=== PATIENT | female | born 1960 | race Hispanic/Latino ===

== ENCOUNTER 2016-11-29 10:44 | Emergency (ER) | payer BC ==
[2016-11-29 10:54] VITALS: BMI 30.1
[2016-11-29 11:00] VITALS: TEMP 99.1
[2016-11-29] MEDS ORDERED: TDAP Vaccine 0.5 mL Syr IM ONE (11:19)
[2016-11-29] MEDS ORDERED: Amoxicillin-Clav 875-125 mg Tab PO STA (11:20)
--- NOTE | 2016-11-29 11:20 | ED PDOC ---
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 Patient stated while walking her dog at a local park, a "pit Bull" dog attacked her dog. She tried to break the attack, but she was bit by the pit bull. Patient stated she was able to get rabies vaccine for the attacker dog. Last tetanus is [facility]. Denies allergies or past medical history. Patient has FROM on her hand and fingers with mild pain. Time/Duration: Prior to Arrival Context: Other (park) Past Medical History - Provider Review Nursing Documentation Reviewed: Yes - Infectious Disease Hx of Infectious Diseases: None - Tetanus Immunization Tetanus Immunization: Unknown - Cardiac Hx Cardiac Disorders: No - Pulmonary Hx Respiratory Disorders: No - Neurological Hx Neurological Disorder: No - HEENT Hx HEENT Disorder: No - Renal Hx Renal Disorder: No - Endocrine/Metabolic Hx Endocrine Disorders: No - Hematological/Oncological Hx Blood Disorders: No - Integumentary Hx Dermatological Disorder: No - Musculoskeletal/Rheumatological Hx Musculoskeletal Disorders: No Hx Falls: No - Gastrointestinal Hx Gastrointestinal Disorders: No - Genitourinary/Gynecological Hx Genitourinary Disorders: No Hx Reproductive Disorders: No - Psychiatric Hx Psychophysiologic Disorder: No Hx Anxiety: No Hx Bipolar Disorder: No Hx Depression: Yes Hx Emotional Abuse: No Hx Hallucinations: No Hx Panic Disorder: No Hx Post Traumatic Stress Disorder: No Hx Psychosis: No Hx Physical Abuse: No Hx Schizophrenia: No Hx Sexual Abuse: No Hx Substance Use: No - Surgical History Hx Section: Yes (x1) Hx Cholecystectomy: Yes Other/Comment: vein stripping - Anesthesia Hx Anesthesia: Yes Hx Anesthesia Reactions: No Hx Malignant Hyperthermia: No - Suicidal Assessment Feels Threatened In Home Enviroment: No Family/Social History - Physician Review Nursing Documentation Reviewed: Yes Family/Social History: No Known Family HX Smoking Status: Never Smoked Hx Alcohol Use: No Hx Substance Use: No Hx Substance Use Treatment: No Allergies/Home Meds Allergies/Adverse Reactions: Allergies No Known Allergies Allergy (Verified 11/29/16 10:54) Home Medications: Home Meds Medication Instructions Recorded Confirmed DULoxetine [Cymbalta] 20 mg PO DAILY 03/11/12 11/29/16 Aspirin [[place] Aspirin] 1 tab PO DAILY 11/29/16 11/29/16 Review of Systems - Review of Systems Constitutional: Normal. absent: Fatigue, Weight Change, Fevers, Night Sweats Eyes: Normal ENT: Normal Respiratory: Normal. absent: SOB, Cough Cardiovascular: Normal. absent: Chest Pain, Palpitations Gastrointestinal: Normal. absent: Abdominal Pain, Nausea, Vomiting Genitourinary Female: Normal. absent: Dysuria Musculoskeletal: Normal Skin: Other (dog bite wounds on right dorsal hand) Neurological: Normal Endocrine: Normal Hemo/Lymphatic: Normal Psychiatric: Normal Physical Exam Vital Signs Temp Pulse Resp BP Pulse Ox 11/29/16 10:58 99.1 F 108 H 20 175/116 H 99 Temperature: Afebrile Blood Pressure: Hypertensive Pulse: Tachycardic Respiratory Rate: Normal Appearance: Positive for: Well-Appearing, Non-Toxic, Comfortable Pain Distress: None Mental Status: Positive for: Alert and Oriented X 3 - Systems Exam Head: Present: Atraumatic, Normocephalic Pupils: Present: PERRL Extroacular Muscles: Present: EOMI Conjunctiva: Present: Normal Mouth: Present: Moist Mucous Membranes Neck: Present: Normal Range of Motion Upper Extremity: Present: Normal ROM, NORMAL PULSES, Tenderness, Neurovascularly Intact, Capillary Refill < 2s, Other ((+) there are 4 punctures wound over distal aspect of right hand, and 1 cm laceration between 3rd, and 4th MPJ area, superficial. Hand has FROM). No: Cyanosis, Edema Lower Extremity: Present: Normal Inspection, Normal ROM Neurological: Present: GCS=15, CN II-XII Intact, Speech Normal, Motor Func Grossly Intact, Normal Sensory Function, Normal Cerebellar Funct, Gait Normal, Memory Normal Skin: Present: Warm, Dry, Normal Color. No: Rashes Psychiatric: Present: Alert, Oriented x 3, Normal Insight, Normal Concentration Medical Decision Making ED Course and Treatment: 11/29/16 11:23 Adacel, and Augmentin were ordered. Wound care was verbally ordered to nurse. 11/29/16 11:38 Patient is resting comfortably, and is in no acute distress. Patient was instructed to follow up with PMD in 1-2 days for further evaluation. Re-evaluation Time: 11:38 Reassessment Condition: Re-examined, Improved - Medication Orders Current Medication Orders: Discontinued Medications Amoxicillin/Clavulanate Potassium (Augmentin 875 Mg-125 Mg Tab) 1 tab PO STAT STA PRN Reason: Protocol Stop: 11/29/16 11:21 Tetanus/Reduced Diphtheria/Acell Pertussis (Boostrix Vaccine Inj) 0.5 ml IM .ONCE ONE Stop: 11/29/16 11:20 Disposition/Present on Arrival - Present on Arrival Any Indicators Present on Arrival: No History of DVT/PE: No History of Uncontrolled Diabetes: No Urinary Catheter: No History of Decub. Ulcer: No History Surgical Site Infection Following: None - Disposition Have Diagnosis and Disposition been Completed?: Yes Diagnosis: Dog bite Disposition: HOME/ ROUTINE Disposition Time: 11:38 Patient Plan: Discharge Condition: GOOD Discharge Instructions (ExitCare): Animal Bite (ED) Additional Instructions: Call private doctor for follow up visit in 1-2 days for wound check. Take medication as instructed. Clean wound daily with soap and water. Return to emergency if wound becomes infected, redness, swelling, discharge or worsen symptoms. Prescriptions: Amoxicillin/Clavulanate [Augmentin 875 MG-125 MG] 1 tab PO BID #20 tab Forms: [employer] ([place])
[2016-11-29 12:25] VITALS: BP 147/94; PULSE 98; RESP 18; O2SAT 98
== END 2016-11-29 12:31 | disposition home or self-care (01) ==
LOC: ED 10:44
DX: S61.451A Open bite of right hand, initial encounter (principal); W54.0XXA Bitten by dog, initial encounter; Z23 Encounter for immunization; Y92.830 Public park as the place of occurrence of the external cause

== ENCOUNTER 2017-04-06 14:46 | Inpatient (IN) | payer BC ==
[2017-04-06 14:47] VITALS: BMI 30.1
--- NOTE | 2017-04-06 15:19 | ED PDOC ---
Arrival/HPI - General Historian: Patient <Nir Aleman A - Last Filed: 04/06/17 19:44> <RosalindTerri - Last Filed: 04/08/17 18:51> - General Chief Complaint: Psychiatric Evaluation Time Seen by Provider: 04/06/17 14:52 - History of Present Illness Narrative History of Present Illness (Text): 04/06/17 16:08 56yo female with PMHx of hyperlipdemia and pysch history of depression biba for suicidal attempt. Patient sates she took 25 to 30tabs of Xanax at 1230 this afternoon. States she took it intentionally because of what she is currently going through at home. 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 Patient however denies homicidal ideation, hallucination, any somatic complaint. Notes that she sees a Psychiatrist and the last time was 6months ago. (Nir Aleman A) Past Medical History - Provider Review Nursing Documentation Reviewed: Yes - Infectious Disease Hx of Infectious Diseases: None - Tetanus Immunization Tetanus Immunization: Unknown - Cardiac Hx Cardiac Disorders: No - Pulmonary Hx Respiratory Disorders: No - Neurological Hx Neurological Disorder: No - HEENT Hx HEENT Disorder: No - Renal Hx Renal Disorder: No - Endocrine/Metabolic Hx Endocrine Disorders: No - Hematological/Oncological Hx Blood Disorders: No - Integumentary Hx Dermatological Disorder: No - Musculoskeletal/Rheumatological Hx Musculoskeletal Disorders: No - Gastrointestinal Hx Gastrointestinal Disorders: No - Genitourinary/Gynecological Hx Genitourinary Disorders: No - Psychiatric Hx Bipolar Disorder: Yes Hx Depression: Yes Hx Substance Use: No - Surgical History Hx Section: Yes (x1) Hx Cholecystectomy: Yes Other/Comment: vein stripping - Anesthesia Hx Anesthesia: Yes Hx Anesthesia Reactions: No Hx Malignant Hyperthermia: No - Suicidal Assessment Feels Threatened In Home Enviroment: No <Nir Aleman A - Last Filed: 04/06/17 19:44> Family/Social History - Physician Review Nursing Documentation Reviewed: Yes Family/Social History: Unknown Family HX Smoking Status: Never Smoked Hx Alcohol Use: No Hx Substance Use: No Hx Substance Use Treatment: No <Nir Aleman A - Last Filed: 04/06/17 19:44> Allergies/Home Meds <Nir Aleman A - Last Filed: 04/06/17 19:44> <Terri Boyer - Last Filed: 04/08/17 18:51> Allergies/Adverse Reactions: Allergies No Known Allergies Allergy (Verified 04/06/17 21:46) Home Medications: Home Meds Medication Instructions Recorded Confirmed DULoxetine [Cymbalta] 30 mg PO DAILY 03/11/12 04/06/17 Review of Systems - Physician Review All systems were reviewed & negative as marked: Yes - Review of Systems Constitutional: Normal Eyes: Normal ENT: Normal Respiratory: Normal Cardiovascular: Normal Gastrointestinal: Normal Genitourinary Female: Normal Musculoskeletal: Normal Skin: Normal Neurological: Normal Endocrine: Normal Hemo/Lymphatic: Normal Psychiatric: Depression, Suicidal Ideation (Suicidal attempt) <Nir Aleman A - Last Filed: 04/06/17 19:44> Physical Exam Vital Signs Reviewed: Yes Temperature: Afebrile Blood Pressure: Normal Pulse: Regular Respiratory Rate: Normal Appearance: Positive for: Well-Appearing, Non-Toxic, Comfortable Pain Distress: None Mental Status: Positive for: Alert and Oriented X 3 - Systems Exam Head: Present: Atraumatic, Normocephalic Pupils: Present: PERRL Extroacular Muscles: Present: EOMI Conjunctiva: Present: Normal Mouth: Present: Moist Mucous Membranes Neck: Present: Normal Range of Motion Respiratory/Chest: Present: Clear to Auscultation, Good Air Exchange. No: Respiratory Distress, Accessory Muscle Use Cardiovascular: Present: Regular Rate and Rhythm, Normal S1, S2. No: Murmurs Abdomen: Present: Normal Bowel Sounds. No: Tenderness, Distention, Peritoneal Signs Back: Present: Normal Inspection Upper Extremity: Present: Normal Inspection. No: Cyanosis, Edema Lower Extremity: Present: Normal Inspection. No: Edema Neurological: Present: GCS=15, CN II-XII Intact, Speech Normal Skin: Present: Warm, Dry, Normal Color. No: Rashes Psychiatric: Present: Alert, Oriented x 3, Normal Insight, Normal Concentration , Depressed Mood <Nir Aleman A - Last Filed: 04/06/17 19:44> Vital Signs Temp Pulse Resp BP Pulse Ox 04/06/17 19:19 86 16 103/54 L 97 04/06/17 17:18 80 16 127/78 96 04/06/17 14:56 98.3 F 92 H 18 137/75 96 Medical Decision Making <Nir Aleman - Last Filed: 04/06/17 19:44> <Terri Boyer - Last Filed: 04/08/17 18:51> ED Course and Treatment: 04/06/17 19:44 56yo female in ED for suicidal attempt. she was AAOx3 on arrival. she was hemodynamically stable and in no distress. Case was DORIS Play[employer] christiano Benito at 1510pm. He notes that lab should be done and patient treated symptomatically. Patient have no sign of FISH CONSERVATIONIST depression r respiratory depression in ED. EKG NSR @89bpm with no QT prolongation. Lab was reviewed and mild LFT elevation was noted. She was medically cleared for psych evaluation. Was seen in ED by PES screener. He DC with the psychiatrist and patient was admitted to Dr. Mathews's service. (Nir Aleman) - Lab Interpretations Lab Results: 04/06/17 15:30 04/06/17 15:30 Lab Results 04/06/17 19:20: Urine Color Yellow, Urine Appearance Clear, Urine pH 6.0, Ur Specific [place] 1.010, Urine Protein Negative, Urine Glucose (UA) Negative, Urine Ketones Negative, Urine Blood Negative, Urine Nitrate Negative, Urine Bilirubin Negative, Urine Urobilinogen 0.2, Ur Leukocyte Esterase Trace H, Urine RBC 0 - 2, Urine WBC 5 - 10, Ur Epithelial Cells 3 - 4, Amorphous Sediment Few, Urine Bacteria Many 04/06/17 19:20: Urine Opiates Screen Negative, Urine Methadone Screen Negative, Ur Barbiturates Screen Negative, Ur Phencyclidine Scrn Negative, Ur Amphetamines Screen Negative, U Benzodiazepines Scrn Positive, U Oth Cocaine Metabols Negative, U Cannabinoids Screen Negative 04/06/17 17:00: Salicylates < 1 L, Acetaminophen < 10.0 L 04/06/17 15:30: Alcohol, Quantitative < 10 04/06/17 15:30: Sodium 140, Potassium 4.3, Chloride 102, Carbon Dioxide 28, Anion Gap 14, BUN 14, Creatinine 0.9, Est GFR ( Amer) > 60, Est GFR (Non- Af Amer) > 60, Random Glucose 94, Calcium 9.9, Magnesium 2.2, Total Bilirubin 0.7, AST 40 H, ALT 65 H, Alkaline Phosphatase 77, Total Protein 7.1, Albumin 4.3 , Globulin 2.8, Albumin/Globulin Ratio 1.5 04/06/17 15:30: WBC 8.6, RBC 5.02, Hgb 14.9, Hct 44.1, MCV 87.8, MCH 29.7, MCHC 33.8, RDW 13.4, Plt Count 296, MPV 10.1, Gran % 67.1, Lymph % (Auto) 24.0, Cotton % (Auto) 8.0 H, Eos % (Auto) 0.7 L, Baso % (Auto) 0.2, Gran # 5.77, Lymph # 2.1 , Cotton # 0.7 H, Eos # 0.1, Baso # 0.02 - Medication Orders Current Medication Orders: Al Hydrox/Mg Hydrox/Simethicone (Maalox Plus 30 Ml) 30 ml PO DAILY PRN PRN Reason: Upset Stomach Duloxetine HCl (Cymbalta) 60 mg PO DAILY [facility] Last Admin: 04/08/17 08:49 Dose: 60 mg Lorazepam (Ativan) 1 mg PO Q12 KAYLEEN PRN Reason: Protocol Last Admin: 04/08/17 18:40 Dose: 1 mg Behavioural Document 04/08/17 18:40 CV (Rec: 04/08/17 18:40 CV [id number]) Maintenance Maintenance Dose Yes Nonmedicinal Nonmedicinal Interventions Therapeutic Communication Magnesium Hydroxide (Milk Of Magnesia) 30 ml PO DAILY PRN PRN Reason: Constipation Nitrofurantoin Macrocrystals (Macrobid) 100 mg PO Q12 [facility] Last Admin: 04/08/17 18:40 Dose: 100 mg Zolpidem Tartrate (Ambien) 5 mg PO HS PRN; Protocol PRN Reason: Insomnia Discontinued Medications Lorazepam (Ativan) 1 mg PO Q6 KAYLEEN PRN Reason: Protocol Last Admin: 04/08/17 06:00 Dose: Not Given Non-Admin Reason: Patient Asleep Behavioural Document 04/08/17 06:00 CLI (Rec: 04/08/17 07:47 CLI [id number]) Maintenance Maintenance Dose Yes - PA / EDGE PLUGGER / Resident Statement MD/DO has reviewed & agrees with the documentation as recorded. <Terri Boyer - Last Filed: 04/08/17 18:51> Disposition/Present on Arrival - Present on Arrival Any Indicators Present on Arrival: No History of DVT/PE: No History of Uncontrolled Diabetes: No Urinary Catheter: No History of Decub. Ulcer: No History Surgical Site Infection Following: None - Disposition Have Diagnosis and Disposition been Completed?: Yes Disposition Time: 19:45 <Nir Aleman - Last Filed: 04/06/17 19:44> <Terri Boyer - Last Filed: 04/08/17 18:51> - Disposition Diagnosis: Depression, Suicidal intent Disposition: HOSPITALIZED Patient Problems: Current Active Problems Problem Status Onset Depression Acute Suicidal intent Acute Condition: FAIR
[2017-04-06 15:58] LABS: BASO # 0.02 K/mm3 (0.0-2.0); BASO % 0.2 % (0.0-3.0); EOS # 0.1 (0.0-0.7); EOS % 0.7 % (1.5-5.0); GRAN # 5.77 (1.4-6.5); GRAN % 67.1 % (50.0-68.0); HEMATOCRIT 44.1 % (36.0-48.0); LYMPH # 2.1 (1.2-3.4); MEAN CELL VOLUME 87.8 fl (80.0-105.0); MEAN CORPUSCULAR HEMOGLOBIN 29.7 pg (25.0-35.0); MEAN CORPUSCULAR HGB CONC 33.8 g/dl (31.0-37.0); MEAN PLATELET VOLUME 10.1 fl (7.0-11.0); MONO # 0.7 (0.1-0.6); RED CELL DISTRIBUTION WIDTH 13.4 % (11.5-14.5); WHITE BLOOD COUNT 8.6 10^3/ul (4.5-11.0)
[2017-04-06 15:59] LABS: ALB/GLOB RATIO 1.5 (1.1-1.8); ALKALINE PHOSPHATASE 77 U/L (38-126); ALT/SGPT 65 U/L (7-56); AST/SGOT 40 U/L (14-36); BILIRUBIN,TOTAL 0.7 mg/dL (0.2-1.3); BLOOD UREA NITROGEN 14 mg/dL (7-21); CALCIUM 9.9 mg/dL (8.4-10.5); CARBON DIOXIDE 28 mmol/L (21-33); CHLORIDE 102 mmol/L (98-107); GFR AFRICAN-AMERICAN > 60; GLUCOSE,RANDOM 94 mg/dL (70-110); MAGNESIUM 2.2 mg/dL (1.7-2.2); POTASSIUM 4.3 mmol/L (3.6-5.0); SODIUM 140 mmol/L (132-148); TOTAL PROTEIN 7.1 g/dL (5.8-8.3)
--- NOTE | 2017-04-06 18:14 | CARD ---
APPROVED REPORT EKG Measurement Heart [id number] <Conclusion> Poor data quality, interpretation may be adversely affected Normal sinus rhythm Normal ECG
[2017-04-06 19:19] VITALS: O2SAT 97
[2017-04-06 19:29] LABS: URINE APPEARANCE CLEAR (CLEAR); URINE BILIRUBIN NEGATIVE (NEGATIVE); URINE BLOOD NEGATIVE (NEGATIVE); URINE COLOR YELLOW (YELLOW); URINE GLUCOSE (UA) NEGATIVE (NEGATIVE); URINE KETONE NEGATIVE (NEGATIVE); URINE LEUKOCYTE ESTERASE TRACE Leu/uL (NEGATIVE); URINE PROTEIN NEGATIVE mg/dL (<30 mg/dL); URINE UROBILINOGEN 0.2 E.U./dL (<1 E.U./dL)
[2017-04-06 19:36] LABS: URINE AMORPHOUS SEDIMENT FEW; URINE BACTERIA MANY (NEG); URINE RBC 0 - 2 /hpf (0-2)
[2017-04-06] MEDS ORDERED: Magnesium Hydroxide Susp 30 ml UD PO PRN (21:46)
[2017-04-06] MEDS ORDERED: Alum-Mag Hydrox-Simethicone Susp (30 mL) PO PRN (21:46)
--- NOTE | 2017-04-06 22:39 | PCM.BM ---
<Atif Turcios - Last Filed: 04/06/17 22:37> Treatment Plan Problems - Problems identified on initial assessmt Suicidal Ideation Date Initiated: 04/06/17 Time Initiated: 22:37 Assessment reference: NA Status: Active Ineffective Coping Date Initiated: 04/06/17 Time Initiated: 22:38 Assessment reference: NA Status: Active Depression Date Initiated: 04/06/17 Time Initiated: 22:38 Assessment reference: NA Status: Active Treatment assets and liabiliti Patient Assests: adapts well, cooperative, educated, insightful, motivated, resourceful, self-reliant, ADL independent, physically healthy, negotiates basic needs, good past tx response, financial stabiity, cognitively intact, good interpersonal skills Patient Liabilities: relationship conflicts, other - Milieu Protocol Maintain good personal hygiene: daily Encourage regular showers, daily Remind patient to perform daily oral care, daily Assist patient to perform ADL's Maintain personal safety: every shift Educate patient to report safety concerns to staff, every shift Monitor environment for contraband/sharps Medication safety: Monitor for expected outcome, potential side effects: every shift, Assess barriers to learning: every shift, Assess readiness for medication education: every shift Discharge/Continuing Care - Education Needs Education Needs: Patient Medication, Patient Diagnosis/Disease Process, Patient Coping Skills, Patient Community resources, Patient Health Practices/Safety, Patient Aftercare Safety Plan - Discharge Discharge Criteria: Free of Suicidal thoughts, Normal sleep pattern, Ability to care for self <Pipe Valles - Last Filed: 04/07/17 18:29> - Diagnosis (1) Depression Status: Acute (2) Suicidal intent Status: Acute <Chapis Souza - Last Filed: 04/10/17 08:35> Family Contact Family involvement: Family/SO is involved Family contact: Patient agrees to contact Family contact name: Hudson Ram() Family contacted how many times per week?: 2 <Karla Martin - Last Filed: 04/10/17 08:43>
[2017-04-07 08:16] LABS: BASO # 0.02 K/mm3 (0.0-2.0); BASO % 0.2 % (0.0-3.0); EOS # 0.1 (0.0-0.7); EOS % 0.9 % (1.5-5.0); GRAN # 5.13 (1.4-6.5); GRAN % 64.1 % (50.0-68.0); HEMATOCRIT 45.6 % (36.0-48.0); LYMPH # 2.1 (1.2-3.4); LYMPH % 26.1 % (22.0-35.0); MEAN CELL VOLUME 87.5 fl (80.0-105.0); MEAN CORPUSCULAR HEMOGLOBIN 29.8 pg (25.0-35.0); MEAN PLATELET VOLUME 9.9 fl (7.0-11.0); MONO # 0.7 (0.1-0.6); MONO % 8.7 % (1.0-6.0); RED CELL DISTRIBUTION WIDTH 13.4 % (11.5-14.5)
[2017-04-07 08:43] LABS: ALB/GLOB RATIO 1.4 (1.1-1.8); ALKALINE PHOSPHATASE 89 U/L (38-126); ALT/SGPT 60 U/L (7-56); AST/SGOT 42 U/L (14-36); BILIRUBIN,TOTAL 0.6 mg/dL (0.2-1.3); BLOOD UREA NITROGEN 15 mg/dL (7-21); CALCIUM 9.6 mg/dL (8.4-10.5); CARBON DIOXIDE 23 mmol/L (21-33); CHLORIDE 106 mmol/L (98-107); GFR AFRICAN-AMERICAN > 60; GLUCOSE,FASTING 91 mg/dL (65-110); GLUCOSE,RANDOM 91 mg/dL (70-110); POTASSIUM 4.2 mmol/L (3.6-5.0); SODIUM 140 mmol/L (132-148)
[2017-04-07 09:16] LABS: CHOLESTEROL 193 mg/dL (130-200)
--- NOTE | 2017-04-07 09:35 | PCM.PSYCH ---
Initial Psychiatric Evaluation - Initial Psychiatric Evaluation Type of Admission: Voluntary Chief Complaint (in patient's own words): "I have been overwhelmed" History of Present Illness and Precipitating Events: Patient is a 56 yo female with psychiatric history of Bipolar Disorder and Anxiety Disorder, multiple admissions-most recently in 2013 at [place], at least 3 prior suicide attempts, noncompliance with medications Cymbalta and Saphris prescribed by her long time on-again/off-again psychiatrist Dr. Nelson who was BIBA for suicidal attempt. ER records indicate that patient admitted to taking 25 to 30 tabs of 0.5 mg Xanax at 12:30 pm yesterday. Patient informed this provider that her xanax overdose was impulsive and intentional but was more of a suicidal gesture and not a true suicide attempt. She isn't prescribed xanax, she took her 's medication. Patient reports that she has been feeling increasingly depressed and unhappy. Endorses symptoms of anhedonia, low energy, motivation and frustration tolerance. Reports that she is very stressed because her is battling small bowel carcinoma. He was given 18-24 months to live, this was 3 years ago. They have been traveling back and forth from their two residences in [place] and [place] for treatment at [facility]. Patient reports that it has been difficult to see her lose weight and become weak. 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 Patient is also worried about her 25 yo adult son who lives with her and her . He's "been moping around at home" and doesn' t have a job. She wants him to do better. These worries keep her up at night thus she also hasn't been sleeping well. Currently patient is not suicidal or homicidal. Remains depressed however regrets her overdose. She wants to live and improve. She would like to take cymbalta which she has been prescribed many years. Also reports that ambien has worked well for her in the past for insomnia. PSYCHIATRIC HISTORY ~Symptoms of depression started 25 years ago after the of her son. Patient reports multiple prior psychiatric hospitalizations, most recently in [place] 2013. She has been hospitalized at [facility], [facility] 1991 & 2011, and [facility] on the [place], [place]. Per Dr. Almaguer's discharge summary 03/11/2012-03/15/2012 , patient was treated at [facility] for depression related to issues with her daughters and college. She was given a diagnosis of Mood Disorder NOS and provisional diagnosis of early onset dementia. She was transferred to [facility] for further stabilization, per 's request at the time. ~Patient also has a history of three prior suicide attempts versus gestures, all of them were overdoses. ~Patient has been seeing her psychiatrist, Dr. David off and on since 1993. Last follow up was x6 months ago per ER report. In general, she has not be compliant with her medications Cymbalta and Saphris. Patient reports that her dose of Cymbalta was 60 mg daily and Saphris was 30 mg HS (which is abnormally high dose for bipolar treatment). Patient has been taking cymbalta for many years. SOCIAL HISTORY Born in [place] and grew up in [place]. Patient is a college graduate and majored in criminal justice. Patient at the age of 30. Her is 20 years her senior. 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 Patient has three grown children 23-year-old fraternal twin daughters and a 25-year-old son. Patient's 23-year-old daughter and 25-year -old son reside with her and her . 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 He was given 18 to 24 months to live at the time. Patient denies drug/alcohol/tobacco use. Current Medications: Active Medications Generic Name Dose Route Start Last Admin Trade Name Freq PRN Reason Stop Dose Admin Al Hydrox/Mg Hydrox/Simethicone 30 ml 04/06/17 21:46 Maalox Plus 30 Ml PO DAILY PRN Upset Stomach Lorazepam 1 mg 04/07/17 04:00 04/07/17 03:44 Ativan PO Not Given Q6 KAYLEEN Protocol Magnesium Hydroxide 30 ml 04/06/17 21:46 Milk Of Magnesia PO DAILY PRN Constipation Zaleplon 5 mg 04/06/17 21:53 Sonata PO HS PRN Insomnia Past Psychiatric History - Past Psychiatric History Pertinent Medical Hx (Current Medical&Sleep Prob, Allergies): Allergies Allergy/AdvReac Type Severity Reaction Status Date / Time No Known Allergies Allergy Verified 04/06/17 21:46 DULoxetine [Cymbalta] 30 mg PO DAILY 03/11/12 Mental Status Examination - Personal Presentation Personal Presentation: Looks stated age, Dressed appropriate to season, No apparent handicaps - Affect Affect: Constricted - Motor Activity Motor Activity: Calm - Reliability in Providing Information Reliability in Providing Information: Fair - Speech Speech: Organized - Mood Mood: Depressed, Anxious - Formal Thought Process Formal Thought Process: No Impairment - Obsessions/Compulsions Obsessions: No Compulsions: No - Cognitive Functions Orientation: Person, Place, Situation Sensorium: Alert Attention/Concentration: Attentive Estimate of Intelligence: Average Judgement: Imparied, as evidence by: Poor judgement, Intact, as evidence by: Insight regarding need for hospitalization Memory: Recent intact, as evidence by: Ability to recall events of the day - Risk Risk: Suicidal, Seizure - Strength & Assets Inventory Strength & Assets Inventory: Intelligence, Family support, Education, Employment history, Cooperative - Limitations Limitations: Other ( has terminal cancer) DSM 5 DX - DSM 5 DSM 5 Diagnosis: Bipolar Disorder by hx Anxiety Disorder - Recommended/Plan of Treatment Treatment Recommendations and Plan of Treatment: * Group, milieu and supportive treatment * Cymbalta 60 mg po daily for depression and anxiety * Ativan 1 mg q6 for xanax withdrawals, taper as tolerated and hold if sbp<100 * Ambien 5 mg HS prn: insomnia * Hold on Saphris, this medication is nonformulary and reported dose of 30 mg HS may be inaccurate as this dose is higher than recommended treatment dose for bipolar disorder * Awaiting medical consult * Vitals reviewed and noted below: Selected Entries 04/06/17 04/06/17 04/06/17 14:56 17:18 19:19 Temperature 98.3 F Pulse Rate 92 H 80 86 Respiratory 18 16 16 Rate Blood Pressure 137/75 127/78 103/54 L 04/07/17 06:49 Temperature 98 F Pulse Rate 87 Respiratory 20 Rate Blood Pressure 121/84 ER LABS AND STUDIES EKG NSR @89bpm with no QT prolongation. 04/06/17 19:20: Urine Color Yellow, Urine Appearance Clear, Urine pH 6.0, Ur Specific [place] 1.010, Urine Protein Negative, Urine Glucose (UA) Negative, Urine Ketones Negative, Urine Blood Negative, Urine Nitrate Negative, Urine Bilirubin Negative, Urine Urobilinogen 0.2, Ur Leukocyte Esterase Trace H, Urine RBC 0 - 2, Urine WBC 5 - 10, Ur Epithelial Cells 3 - 4, Amorphous Sediment Few, Urine Bacteria Many 04/06/17 17:00: Salicylates < 1 L, Acetaminophen < 10.0 L 04/06/17 15:30: Alcohol, Quantitative < 10 04/06/17 15:30: Sodium 140, Potassium 4.3, Chloride 102, Carbon Dioxide 28, Anion Gap 14, BUN 14, Creatinine 0.9, Est GFR ( Amer) > 60, Est GFR (Non- Af Amer) > 60, Random Glucose 94, Calcium 9.9, Magnesium 2.2, Total Bilirubin 0.7, AST 40 H, ALT 65 H, Alkaline Phosphatase 77, Total Protein 7.1, Albumin 4.3 , Globulin 2.8, Albumin/Globulin Ratio 1.5 04/06/17 15:30: WBC 8.6, RBC 5.02, Hgb 14.9, Hct 44.1, MCV 87.8, MCH 29.7, MCHC 33.8, RDW 13.4, Plt Count 296, MPV 10.1, Gran % 67.1, Lymph % (Auto) 24.0, [place] % (Auto) 8.0 H, Eos % (Auto) 0.7 L, Baso % (Auto) 0.2, Gran # 5.77, Lymph # 2.1 , [place] # 0.7 H, Eos # 0.1, Baso # 0.02 FLOOR LABS 04/07/17 04/07/17 04/07/17 08:00 08:00 08:00 WBC 8.0 RBC 5.21 Hct 45.6 MCV 87.5 MCH 29.8 MCHC 34.0 RDW 13.4 Plt Count 246 MPV 9.9 Gran % 64.1 Lymph % (Auto) 26.1 [place] % (Auto) 8.7 H Eos % (Auto) 0.9 L Baso % (Auto) 0.2 Gran # 5.13 Lymph # 2.1 [place] # 0.7 H Eos # 0.1 Baso # 0.02 Sodium 140 Potassium 4.2 Chloride 106 Carbon Dioxide 23 Anion Gap 15 BUN 15 Creatinine 0.8 Est GFR (Non-Af Amer) > 60 Random Glucose 91 Fasting Glucose 91 Calcium 9.6 Total Bilirubin 0.6 AST 42 H ALT 60 H Alkaline Phosphatase 89 Total Protein 7.0 Albumin 4.0 Globulin 2.9 Albumin/Globulin Ratio 1.4 Triglycerides 143 Cholesterol 193 LDL Cholesterol Direct 117 HDL Cholesterol 47 TSH 3rd Generation 1.43 - Smoking Cessation Smoking Cessation Initiated: No
--- NOTE | 2017-04-07 10:19 | RAD ---
HISTORY: admission COMPARISON: 03/11/2012 FINDINGS: LUNGS: No active pulmonary disease. PLEURA: No significant pleural effusion identified, no pneumothorax apparent. CARDIOVASCULAR: Normal. OSSEOUS STRUCTURES: No significant abnormalities. VISUALIZED UPPER ABDOMEN: Normal. OTHER FINDINGS: None. IMPRESSION: No active disease.
--- NOTE | 2017-04-08 08:36 | PCM.PYCHPN ---
Psychiatric Progress Note - Psychiatric Progress Note Patient seen today, length of contact: 25 min Patient Chief Complaint: "I have been overwhelmed but I am feeling better now, I have a lot to live for" Problems Identified/Issues Discussed: History of Present Illness and Precipitating Events 04/07/17: Patient is a 56 yo female with psychiatric history of Bipolar Disorder and Anxiety Disorder, multiple admissions-most recently in 2013 at [place], at least 3 prior suicide attempts, noncompliance with medications Cymbalta and Saphris prescribed by her long time on-again/off-again psychiatrist Dr. Nelson who was BIBA for suicidal attempt. ER records indicate that patient admitted to taking 25 to 30 tabs of 0.5 mg Xanax at 12:30 pm yesterday. Patient informed this provider that her xanax overdose was impulsive and intentional but was more of a suicidal gesture and not a true suicide attempt. She isn't prescribed xanax, she took her 's medication. Patient reports that she has been feeling increasingly depressed and unhappy. Endorses symptoms of anhedonia, low energy, motivation and frustration tolerance. Reports that she is very stressed because her is battling small bowel carcinoma. He was given 18-24 months to live, this was 3 years ago. They have been traveling back and forth from their [facility]. Patient reports that it has been difficult to see her lose weight and become weak. 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 Patient is also worried about her 25 yo adult son who lives with her and her . He's "been moping around at home" and doesn' t have a job. She wants him to do better. These worries keep her up at night thus she also hasn't been sleeping well. Currently patient is not suicidal or homicidal. Remains depressed however regrets her overdose. She wants to live and improve. She would like to take cymbalta which she has been prescribed many years. Also reports that ambien has worked well for her in the past for insomnia. PSYCHIATRIC HISTORY ~Symptoms of depression started 25 years ago after the of her son. Patient reports multiple prior psychiatric hospitalizations, most recently in [place] 2013. She has been hospitalized at [facility] 1991 & 2011, and [facility] on the [place], [place]. Per Dr. Almaguer's discharge summary 03/11/2012-03/15/2012 , patient was treated at [facility] for depression related to issues with her daughters and college. She was given a diagnosis of Mood Disorder NOS and provisional diagnosis of early onset dementia. She was transferred to [facility] for further stabilization, per 's request at the time. ~Patient also has a history of three prior suicide attempts versus gestures, all of them were overdoses. ~Patient has been seeing her psychiatrist, Dr. David off and on since 1993. Last follow up was x6 months ago per ER report. In general, she has not be compliant with her medications Cymbalta and Saphris. Patient reports that her dose of Cymbalta was 60 mg daily and Saphris was 30 mg HS (which is abnormally high dose for bipolar treatment). Patient has been taking cymbalta for many years. SOCIAL HISTORY Born in [place] and grew up in [place]. Patient is a college graduate and majored in criminal justice. Patient at the age of 30. Her is 20 years her senior. 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 Patient has three grown children 23-year-old fraternal twin daughters and a 25-year-old son. Patient's 23-year-old daughter and 25-year -old son reside with her and her . 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 He was given 18 to 24 months to live at the time. Patient denies drug/alcohol/tobacco use. PROGRESS NOTE 04/08/17 I reviewed recent notes and met with patient at bedside. She remains well- oriented, pleasant and cooperative. Depression persists however patient is no longer hopeless. She doesn't want to and denies suicidal thoughts. Still regrets her impulsive overdose prior to admission. Thoughts are clear and goal directed. She denies any new pain or discomfort. She slept well last night with ambien. She is tolerating her other medications well. Staff notes indicate that patient has been a little labile, tearful at times. Spends a lot of time in her room. She does attend groups with encouragement. There were no behavioral issues overnight. Diagnostic Results: Bipolar Disorder by hx Anxiety Disorder Medication Change: No Medical Record Reviewed: Yes Mental Status Examination - Cognitive Function Orientation: Person, Place, Situation Attention: WNL Concentration: WNL Association: WNL Fund of Knowledge: WNL - Mood Mood: Depressed ( "I have been overwhelmed but I am feeling better now, I have a lot to live for"), Anxious - Affect Affect: Constricted - Formal Thought Process Formal Thought Process: No Impairment - Suicidal Ideation Suicidal Ideation: No - Homicidal Ideation Homicidal Ideation: No Goal/Treatment Plan - Goal/Treatment Plan Progress Toward Problem(s) and Goals/Treatment Plan: * Group, milieu and supportive treatment * Cymbalta 60 mg po daily for depression and anxiety * Ativan 1 mg q6 decreased to Ativan 1 mg q12 for xanax withdrawal, taper as tolerated and hold if sbp<100 * Ambien 5 mg HS prn: insomnia * Hold on Saphris, this medication is nonformulary and reported dose of 30 mg HS may be inaccurate as this dose is higher than recommended treatment dose for bipolar disorder * Awaiting medical consult * Vitals reviewed and noted below: 04/07/17 04/07/17 06:49 16:41 Temperature 98 F Pulse Rate 87 89 Respiratory 20 Rate Blood Pressure 121/84 101/61 ER LABS AND STUDIES EKG NSR @89bpm with no QT prolongation. 04/06/17 19:20: Urine Color Yellow, Urine Appearance Clear, Urine pH 6.0, Ur Specific [place] 1.010, Urine Protein Negative, Urine Glucose (UA) Negative, Urine Ketones Negative, Urine Blood Negative, Urine Nitrate Negative, Urine Bilirubin Negative, Urine Urobilinogen 0.2, Ur Leukocyte Esterase Trace H, Urine RBC 0 - 2, Urine WBC 5 - 10, Ur Epithelial Cells 3 - 4, Amorphous Sediment Few, Urine Bacteria Many 04/06/17 17:00: Salicylates < 1 L, Acetaminophen < 10.0 L 04/06/17 15:30: Alcohol, Quantitative < 10 04/06/17 15:30: Sodium 140, Potassium 4.3, Chloride 102, Carbon Dioxide 28, Anion Gap 14, BUN 14, Creatinine 0.9, Est GFR ( Amer) > 60, Est GFR (Non- Af Amer) > 60, Random Glucose 94, Calcium 9.9, Magnesium 2.2, Total Bilirubin 0.7, AST 40 H, ALT 65 H, Alkaline Phosphatase 77, Total Protein 7.1, Albumin 4.3 , Globulin 2.8, Albumin/Globulin Ratio 1.5 04/06/17 15:30: WBC 8.6, RBC 5.02, Hgb 14.9, Hct 44.1, MCV 87.8, MCH 29.7, MCHC 33.8, RDW 13.4, Plt Count 296, MPV 10.1, Gran % 67.1, Lymph % (Auto) 24.0, [place] % (Auto) 8.0 H, Eos % (Auto) 0.7 L, Baso % (Auto) 0.2, Gran # 5.77, Lymph # 2.1 , [place] # 0.7 H, Eos # 0.1, Baso # 0.02 FLOOR LABS 04/07/17 04/07/17 04/07/17 08:00 08:00 08:00 WBC 8.0 RBC 5.21 Hct 45.6 MCV 87.5 MCH 29.8 MCHC 34.0 RDW 13.4 Plt Count 246 MPV 9.9 Gran % 64.1 Lymph % (Auto) 26.1 [place] % (Auto) 8.7 H Eos % (Auto) 0.9 L Baso % (Auto) 0.2 Gran # 5.13 Lymph # 2.1 [place] # 0.7 H Eos # 0.1 Baso # 0.02 Sodium 140 Potassium 4.2 Chloride 106 Carbon Dioxide 23 Anion Gap 15 BUN 15 Creatinine 0.8 Est GFR (Non-Af Amer) > 60 Random Glucose 91 Fasting Glucose 91 Calcium 9.6 Total Bilirubin 0.6 AST 42 H ALT 60 H Alkaline Phosphatase 89 Total Protein 7.0 Albumin 4.0 Globulin 2.9 Albumin/Globulin Ratio 1.4 Triglycerides 143 Cholesterol 193 LDL Cholesterol Direct 117 HDL Cholesterol 47 TSH 3rd Generation 1.43
--- NOTE | 2017-04-08 21:53 | CON ---
DATE: HISTORY OF PRESENT ILLNESS: I was called to come to Psychiatry to do a medical consult on Ora Ram. She is a 56-year-old female who presented to the ER with history of suicide attempt reported by ambulance depression. She took 25 to 30 tabs of Xanax in the afternoon. She was intentional. Apparently, the who was diagnosed with cancer and she is the one who takes care of him and she was very depressed. PAST MEDICAL HISTORY: She has past medical history of high cholesterol, depression history, bipolar. She has section, cholecystectomy, and vein stripping. FAMILY HISTORY: Unknown. SOCIAL HISTORY: Never smoked. No alcohol. No drugs. ALLERGIES: NO KNOWN DRUG ALLERGIES. MEDICATIONS: She takes Cymbalta. REVIEW OF SYSTEMS: No changes in vision or hearing. No sore throat. No chest pain. No palpitations. No shortness of breath. No coughing. No mucus. No abdominal pain. No nausea, vomiting, constipation or diarrhea. No leg or arm pain. Skin intact. No rashes or ulcers. No sweating. No anxiety. There is depression and suicidal attempts. PHYSICAL EXAMINATION: VITAL SIGNS: She has a 98 temperature, 86 pulse, 16 respiratory rate, 103/54 blood pressure, 97% O2 sat. HEENT: Head is atraumatic, normocephalic. Extraocular muscles intact. Pupils reactive to light. Throat is moist. NECK: Supple. HEART: Regular rate. Normal S1 and S2. LUNGS: Clear to auscultation bilaterally. Good air exchange. No wheezes. No rhonchi. No rales. ABDOMEN: Soft, nontender, positive bowel sounds. No guarding. No rebound. No CVA tenderness. EXTREMITIES: Have no edema. NEUROLOGIC: GCS is 15. Cranial nerves II through XII grossly intact. She could smile. She could close her eyes tight. She could stick out the tongue midline. She could raise her arm over the head. SKIN: Warm and dry. No apparent ulcers or adenopathy. PSYCHIATRIC: Alert and oriented x3. Good concentration. Pleasant at this time. MEDICATIONS: She is on Ambien, Ativan, Cymbalta, Maalox, milk of magnesia. LABORATORY DATA: She has a non-reactive RPR. Toxicology was negative. Urine is many bacteria. She has a urinary tract infection. I will put her on antibiotics and check her culture. She has a 140 sodium, potassium 4.2, BUN 15, creatinine 0.8, GFR is greater than 60, sugar is 91, calcium 9.6, total bilirubin is 0.6, AST is 42, ALT is 60, alkaline phosphatase is 89 that could be from an overdose on Xanax causing the liver to be elevated liver enzymes, I called the GI to evaluate that, alkaline phosphatase is 89. Total protein 7, albumin 4, globulin 2.9. Triglyceride is 143, cholesterol 193, LDL is 117, TSH is 1.43. White count is 8, hemoglobin 15.5, hematocrit 45.6, platelets 246. PLAN: She is here for depression, suicidal attempts and thoughts on Xanax and she has UTI. I will put her on antibiotics, nitrofurantoin 100 mg twice a day. Consult GI. Check her labs tomorrow. Thank you very much for the opportunity to participate in her care. Livan Tapia DO [facility]
[2017-04-09 07:33] LABS: HEMATOCRIT 43.8 % (36.0-48.0); MEAN CELL VOLUME 87.8 fl (80.0-105.0); MEAN CORPUSCULAR HEMOGLOBIN 29.1 pg (25.0-35.0); MEAN CORPUSCULAR HGB CONC 33.1 g/dl (31.0-37.0); MEAN PLATELET VOLUME 10.1 fl (7.0-11.0); RED CELL DISTRIBUTION WIDTH 13.3 % (11.5-14.5); WHITE BLOOD COUNT 6.5 10^3/ul (4.5-11.0)
[2017-04-09 07:51] LABS: ALKALINE PHOSPHATASE 73 U/L (38-126); ALT/SGPT 62 U/L (7-56); AST/SGOT 27 U/L (14-36); BILIRUBIN,TOTAL 0.4 mg/dL (0.2-1.3); BLOOD UREA NITROGEN 15 mg/dL (7-21); CALCIUM 9.7 mg/dL (8.4-10.5); CARBON DIOXIDE 26 mmol/L (21-33); CHLORIDE 106 mmol/L (98-107); GFR AFRICAN-AMERICAN > 60; GLUCOSE,RANDOM 100 mg/dL (70-110); POTASSIUM 4.8 mmol/L (3.6-5.0); SODIUM 142 mmol/L (132-148); TOTAL PROTEIN 6.1 g/dL (5.8-8.3)
--- NOTE | 2017-04-09 10:14 | CP.PCM.CON ---
<Katty Solano - Last Filed: 04/09/17 10:04> History of Present Illness - History of Present Illness History of Present Illness: PGY4 Initial GI Consult Reason for consult: Elevated LFTs Ora Ram is a 56F w/ hx of hyperchol, depression who presents to the ER for "feeling overwhelmed". Pt was found to have elevated LFTs on admission and GI was consulted for further eval. Her AST was 42, ALT: 60, and T. Dmitri 0.6. Pt denies any previous liver related problems or hospitalizations. She states that her LFTs were similarly elevated in the past. She denies any significant work- up. She denies any recent or previous blood transfusions, IV drug use, acetaminophen intake, herbal supplements, and viral hepatitis infection. She denies any increase in abdominal girth. She is s/p lap quoc. Denies any significant change in her medications. Denies any BRBPR, melena, hematemesis, or coffee-ground emesis. She notes being a social drinker on the weekends, usually consuming 3 glasses of wine. PMHx: HL PSHx: Lap quoc, lasixs, vein stripping in lower ext Social hx: denies IV drug use, Denies any smoking, + social drinker Family hx: termainal GI cancer, denies any other family hx Endoscopy hx: colonoscopy 5 years ago and as per pt found 1-2 polyps, recommended a 5 year surveillance Past Patient History - Infectious Disease Hx of Infectious Diseases: None - Tetanus Immunizations Tetanus Immunization: Unknown - Past Social History Smoking Status: Never Smoked - CARDIAC Hx Cardiac Disorders: No Hx Hypertension: No - PULMONARY Hx Tuberculosis: No - NEUROLOGICAL HX Cerebrovascular Accident: No Hx Seizures: No - HEENT Hx HEENT Problems: No - RENAL Hx Chronic Kidney Disease: No - ENDOCRINE/METABOLIC Hx Endocrine Disorders: No - HEMATOLOGICAL/ONCOLOGICAL Hx Cancer: No Hx Human Immunodeficiency Virus (HIV): No - INTEGUMENTARY Hx Dermatological Problems: No - MUSCULOSKELETAL/RHEUMATOLOGICAL Hx Musculoskeletal Disorders: No - GASTROINTESTINAL Hx Gastrointestinal Disorders: No Hx Gall Bladder Disease: Yes (Gall bladder removed) - GENITOURINARY/GYNECOLOGICAL Hx Sexually Transmitted Disorders: No - PSYCHIATRIC Hx Anxiety: Yes Hx Bipolar Disorder: Yes Hx Depression: Yes Hx Substance Use: No - SURGICAL HISTORY Hx Section: Yes (x1) Hx Cholecystectomy: Yes Other/Comment: vein stripping - ANESTHESIA Hx Anesthesia: Yes Hx Anesthesia Reactions: No Hx Malignant Hyperthermia: No Meds Allergies/Adverse Reactions: Allergies Allergy/AdvReac Type Severity Reaction Status Date / Time No Known Allergies Allergy Verified 04/06/17 21:46 - Medications Medications: Current Medications Al Hydrox/Mg Hydrox/Simethicone (Maalox Plus 30 Ml) 30 ml PO DAILY PRN PRN Reason: Upset Stomach Duloxetine HCl (Cymbalta) 60 mg PO DAILY KAYLEEN Last Admin: 04/09/17 08:41 Dose: 60 mg Lorazepam (Ativan) 1 mg PO Q12 KALYEEN PRN Reason: Protocol Last Admin: 04/09/17 07:35 Dose: Not Given Magnesium Hydroxide (Milk Of Magnesia) 30 ml PO DAILY PRN PRN Reason: Constipation Zolpidem Tartrate (Ambien) 5 mg PO HS PRN; Protocol PRN Reason: Insomnia Last Admin: 04/08/17 21:33 Dose: 5 mg Physical Exam - Constitutional Appears: No Acute Distress - Head Exam Head Exam: ATRAUMATIC, NORMOCEPHALIC - Eye Exam Eye Exam: Normal appearance - ENT Exam ENT Exam: Mucous Membranes Moist, Normal Exam - Respiratory Exam Respiratory Exam: Clear to Auscultation Bilateral, NORMAL BREATHING PATTERN. absent: Rales, Rhonchi, Wheezes, Respiratory Distress - Cardiovascular Exam Cardiovascular Exam: REGULAR RHYTHM, +S1, +S2 - GI/Abdominal Exam GI & Abdominal Exam: Normal Bowel Sounds, Soft. absent: Distended, Guarding, Hernia, Rebound, Rigid, Tenderness - Extremities Exam Extremities exam: Negative for: joint swelling, pedal edema - Neurological Exam Neurological exam: Alert, Normal Gait, Oriented x3 - Psychiatric Exam Psychiatric exam: Normal Affect, Normal Mood - Skin Skin Exam: Dry, Intact, Normal Color, Warm Results - Vital Signs Recent Vital Signs: Last Vital Signs Temp 98.5 F 04/09/17 08:01 Pulse 88 04/09/17 08:01 Resp 18 04/09/17 08:01 BP 139/88 04/09/17 08:01 Pulse Ox 97 04/06/17 19:19 - Labs Result Diagrams: 04/09/17 07:00 04/09/17 07:00 Labs: Laboratory Results - last 24 hr 04/09/17 04/09/17 07:00 07:00 WBC 6.5 RBC 4.99 Hgb 14.5 Hct 43.8 MCV 87.8 MCH 29.1 MCHC 33.1 RDW 13.3 Plt Count 280 MPV 10.1 Sodium 142 Potassium 4.8 Chloride 106 Carbon Dioxide 26 Anion Gap 15 BUN 15 Creatinine 0.8 Est GFR ( Amer) > 60 Est GFR (Non-Af Amer) > 60 Random Glucose 100 Calcium 9.7 Total Bilirubin 0.4 AST 27 ALT 62 H Alkaline Phosphatase 73 Total Protein 6.1 Albumin 4.1 Globulin 2.1 Albumin/Globulin Ratio 2.0 H Assessment & Plan - Assessment and Plan (Free Text) Assessment: Ora Ram is a 56F w/ hx of depression and HL who presented to the hospital for psychiatric needs, depression. Her LFTs were incidentally found to be elevated Elevated LFTs, etiology likely 2/2 fatty liver disease; r/o viral hepatitis and autoimmune Hx of colon polyps Plan -will get abd u/s -will order hepatitis panel and autoimmune w/u including SAMM, AMA and anti- smooth muscle -continue regular diet -continue curent meds as per primary medical team and psych -recommend f/u with Dr. Capps (her generator assembler at [facility]) for colonoscopy -repeat LFTs tomorrow -recommend weight loss D/W Dr Millan <Víctor Millan - Last Filed: 04/09/17 12:15> Meds - Medications Medications: Current Medications Al Hydrox/Mg Hydrox/Simethicone (Maalox Plus 30 Ml) 30 ml PO DAILY PRN PRN Reason: Upset Stomach Duloxetine HCl (Cymbalta) 60 mg PO DAILY KAYLEEN Last Admin: 04/09/17 08:41 Dose: 60 mg Lorazepam (Ativan) 1 mg PO Q12 KAYLEEN PRN Reason: Protocol Last Admin: 04/09/17 07:35 Dose: Not Given Magnesium Hydroxide (Milk Of Magnesia) 30 ml PO DAILY PRN PRN Reason: Constipation Zolpidem Tartrate (Ambien) 5 mg PO HS PRN; Protocol PRN Reason: Insomnia Last Admin: 04/08/17 21:33 Dose: 5 mg Results - Vital Signs Recent Vital Signs: Last Vital Signs Temp 98.5 F 04/09/17 08:01 Pulse 88 04/09/17 08:01 Resp 18 04/09/17 08:01 BP 139/88 04/09/17 08:01 Pulse Ox 97 04/06/17 19:19 - Labs Result Diagrams: 04/09/17 07:00 04/09/17 07:00 Labs: Laboratory Results - last 24 hr 04/09/17 04/09/17 07:00 07:00 WBC 6.5 RBC 4.99 Hgb 14.5 Hct 43.8 MCV 87.8 MCH 29.1 MCHC 33.1 RDW 13.3 Plt Count 280 MPV 10.1 Sodium 142 Potassium 4.8 Chloride 106 Carbon Dioxide 26 Anion Gap 15 BUN 15 Creatinine 0.8 Est GFR ( Amer) > 60 Est GFR (Non-Af Amer) > 60 Random Glucose 100 Calcium 9.7 Total Bilirubin 0.4 AST 27 ALT 62 H Alkaline Phosphatase 73 Total Protein 6.1 Albumin 4.1 Globulin 2.1 Albumin/Globulin Ratio 2.0 H Attending/Attestation - Attestation I have personally seen and examined this patient.: Yes I have fully participated in the care of the patient.: Yes I have reviewed all pertinent clinical information: Yes Notes (Text): 04/09/17 12:06 I have seen and examined patient with GI fellow. Agree with above documentation with the following additions. In brief, this is a 56 year old female with history of hyperlipidemia, depression who is currently admitted for inpatient psychiatric treatment of major depression. GI called for evaluation of elevated LFTs. She currently feels well and denies abdominal pain, nausea, vomiting, fever/chills, weight loss, rectal bleeding, jaundice, pruritis, or change in bowel movements. She does report that a few years ago she had similar elevations in liver enzymes which normalized on their own. She endorses social ETOH use and denies excessive tylenol use. She had a colonoscopy 5 years ago which showed a "few" polyps as per patient. Additional physical examination: Abdomen: no palpable hepato/splenomegaly Hyperlipidemia Depression Transaminitis - Diet as tolerated - LFTs stable, continue to monitor - Obtain viral hepatitis and autoimmune serology testing - Obtain baseline abdominal US - Patient should have routine age appropriate screening colonoscopy performed as outpatient following resolution of acute psychiatric issues - Will continue to monitor patient clinical course
--- NOTE | 2017-04-09 14:33 | PN ---
DATE: SUBJECTIVE: I saw Ora this morning. She is sitting up in bed doing well. She is feeling better. She does not feel depressed anymore. She is eating okay. She is walking all right. She is in better spirits. She is currently on Ambien, Ativan, Cymbalta, MiraLax, Macrobid for urinary tract infection, and milk of magnesia p.r.n. PHYSICAL EXAMINATION: VITAL SIGNS: She has 98.5 temperature, 88 pulse, 139/88 blood pressure, 105 mean, 18 respiratory rate. HEENT: Head is atraumatic, normocephalic. HEART: Regular rate. LUNGS: Clear to auscultation. ABDOMEN: Soft. EXTREMITIES: No edema. LABORATORY DATA: She had 6.5 white count, 14.5 hemoglobin, and 42.8 hematocrit with 280 platelets. Sodium 142, potassium 4.8, BUN is 15, creatinine 0.8, GFR is greater than 60, sugar is 100, and calcium is 9.7. Total bilirubin is 0.4, AST is 27, ALT is 62, and alkaline phosphatase is 73. Liver enzymes are starting to come down. Total protein 6.1 and 1.43 TSH. ASSESSMENT AND PLAN: She had urinary tract infection, started on antibiotics for that. Routine aggressive treatment and care as per Psychiatry and the urine clean catch showed no growth, so I will stop the Macrodantin antibiotic. I will continue with aggressive treatment and care as per Psychiatry and she was here for depression, elevated liver enzymes, and possible urinary tract infection, which showed no growth. Livan Tapia DO
--- NOTE | 2017-04-09 15:30 | US ---
HISTORY: elevaluate liver, pancreas and biliary COMPARISON: None. TECHNIQUE: Sonographic evaluation of the abdomen. FINDINGS: LIVER: Measures 16.1 cm. Diffusely increased echogenicity of the liver parenchyma. Consistent with fatty infiltration. Smooth contour. No mass. No biliary dilatation GALLBLADDER: Status post cholecystectomy. COMMON BILE DUCT: Measures 8 mm. Consistent with prior cholecystectomy. PANCREAS: Unremarkable as visualized. No mass. No ductal dilatation. RIGHT KIDNEY: Measures 10.7cm. Normal echogenicity. No calculus, mass, or hydronephrosis. LEFT KIDNEY: Measures 11.4cm. Normal echogenicity. No calculus, mass, or hydronephrosis. SPLEEN: Normal in size and contour. No mass. AORTA: No aneurysmal dilatation. IVC: Unremarkable. OTHER FINDINGS: None. IMPRESSION: Fatty infiltration of the liver. Status post cholecystectomy. Mild dilatation of common bile duct consistent with prior cholecystectomy. Otherwise unremarkable.
--- NOTE | 2017-04-09 17:33 | PCM.PYCHPN ---
Psychiatric Progress Note - Psychiatric Progress Note Patient seen today, length of contact: 30min Patient Chief Complaint: "I could not take it anymore..." Problems Identified/Issues Discussed: Suicide/ homicide prevention, past psychiatric h/o, current psychiatric symptoms , medical problems, risk/benefits and alternatives of medications, medications compliance, coping strategies, substance abuse h/o, relapse prevention, importance of follow up with psychiatrist and therapist, discharge plan. Medical Problems: pt reported being healthy,but has elevated LFTs, was seen by GI team , discussed, input appreciated Diagnostic Results: 04/09/17 07:00 04/09/17 07:00 Lab Results 04/09/17 07:00: Sodium 142, Potassium 4.8, Chloride 106, Carbon Dioxide 26, Anion Gap 15, BUN 15, Creatinine 0.8, Est GFR ( Amer) > 60, Est GFR (Non- Af Amer) > 60, Random Glucose 100, Calcium 9.7, Total Bilirubin 0.4, AST 27, ALT 62 H, Alkaline Phosphatase 73, Total Protein 6.1, Albumin 4.1, Globulin 2.1 , Albumin/Globulin Ratio 2.0 H 04/09/17 07:00: WBC 6.5, RBC 4.99, Hgb 14.5, Hct 43.8, MCV 87.8, MCH 29.1, MCHC 33.1, RDW 13.3, Plt Count 280, MPV 10.1 04/07/17 08:00: RPR Nonreactive 04/07/17 08:00: TSH 3rd Generation 1.43 04/07/17 08:00: Sodium 140, Potassium 4.2, Chloride 106, Carbon Dioxide 23, Anion Gap 15, BUN 15, Creatinine 0.8, Est GFR ( Amer) > 60, Est GFR (Non- Af Amer) > 60, Random Glucose 91, Fasting Glucose 91, Calcium 9.6, Total Bilirubin 0.6, AST 42 H, ALT 60 H, Alkaline Phosphatase 89, Total Protein 7.0, Albumin 4.0, Globulin 2.9, Albumin/Globulin Ratio 1.4, Triglycerides 143, Cholesterol 193, LDL Cholesterol Direct 117, HDL Cholesterol 47 04/07/17 08:00: WBC 8.0, RBC 5.21, Hgb 15.5, Hct 45.6, MCV 87.5, MCH 29.8, MCHC 34.0, RDW 13.4, Plt Count 246, MPV 9.9, Gran % 64.1, Lymph % (Auto) 26.1, [place] % (Auto) 8.7 H, Eos % (Auto) 0.9 L, Baso % (Auto) 0.2, Gran # 5.13, Lymph # 2.1 , [place] # 0.7 H, Eos # 0.1, Baso # 0.02 04/06/17 19:20: Urine Color Yellow, Urine Appearance Clear, Urine pH 6.0, Ur Specific [place] 1.010, Urine Protein Negative, Urine Glucose (UA) Negative, Urine Ketones Negative, Urine Blood Negative, Urine Nitrate Negative, Urine Bilirubin Negative, Urine Urobilinogen 0.2, Ur Leukocyte Esterase Trace H, Urine RBC 0 - 2, Urine WBC 5 - 10, Ur Epithelial Cells 3 - 4, Amorphous Sediment Few, Urine Bacteria Many 04/06/17 19:20: Urine Opiates Screen Negative, Urine Methadone Screen Negative, Ur Barbiturates Screen Negative, Ur Phencyclidine Scrn Negative, Ur Amphetamines Screen Negative, U Benzodiazepines Scrn Positive, U Oth Cocaine Metabols Negative, U Cannabinoids Screen Negative 04/06/17 17:00: Salicylates < 1 L, Acetaminophen < 10.0 L 04/06/17 15:30: Alcohol, Quantitative < 10 04/06/17 15:30: Sodium 140, Potassium 4.3, Chloride 102, Carbon Dioxide 28, Anion Gap 14, BUN 14, Creatinine 0.9, Est GFR ( Amer) > 60, Est GFR (Non- Af Amer) > 60, Random Glucose 94, Calcium 9.9, Magnesium 2.2, Total Bilirubin 0.7, AST 40 H, ALT 65 H, Alkaline Phosphatase 77, Total Protein 7.1, Albumin 4.3 , Globulin 2.8, Albumin/Globulin Ratio 1.5 04/06/17 15:30: WBC 8.6, RBC 5.02, Hgb 14.9, Hct 44.1, MCV 87.8, MCH 29.7, MCHC 33.8, RDW 13.4, Plt Count 296, MPV 10.1, Gran % 67.1, Lymph % (Auto) 24.0, [place] % (Auto) 8.0 H, Eos % (Auto) 0.7 L, Baso % (Auto) 0.2, Gran # 5.77, Lymph # 2.1 , [place] # 0.7 H, Eos # 0.1, Baso # 0.02 Vital Signs Temp Pulse Resp BP Pulse Ox 04/09/17 16:00 92 H 135/91 H 04/09/17 08:01 98.5 F 88 18 139/88 04/08/17 16:53 100 H 114/83 04/08/17 07:29 97.4 F L 92 H 21 123/83 04/07/17 16:41 89 101/61 04/07/17 06:49 98 F 87 20 121/84 04/06/17 22:10 18 04/06/17 19:19 86 16 103/54 L 97 04/06/17 17:18 80 16 127/78 96 04/06/17 14:56 98.3 F 92 H 18 137/75 96 DSM 5 Symptoms Update: shortly as per assessment: Patient is a 56 yo female with psychiatric history of Bipolar Disorder and Anxiety Disorder, multiple admissions-most recently in 2013 at [facility], at least 3 prior suicide attempts, noncompliance with medications Cymbalta and Saphris prescribed by her long time on-again/off-again psychiatrist Dr. Nelson (correction ) who was BIBA for suicidal attempt. ER records indicate that patient admitted to taking 25 to 30 tabs of 0.5 mg Xanax on Sunday. pt was seen at the treatment team meeting, patient presented to have with personal hygiene, good ADLs, patient presented well, was trying to minimize her symptoms. notes from Dr. Gonzáles reviewed, previous history reviewed. 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 pt said last Sunday she needed to accompany her for chemo but "I could not, I was feeling weak, it was too much for me, I was not feeling right, I had pain all over my body", pt said she decided to stay home, then "I could not take it anymore", pt then overdosed on xanax, which was not prescribed to her. pt was vague about her intent. pt said that she had difficulties to fall and to stay asleep. pt was doing well on cymbalta, safris, ambien. Pt was seen by " twice a year, I was doing very well". as per evaluation:PSYCHIATRIC HISTORY ~Symptoms of depression started 25 years ago after the of her son. Patient reports multiple prior psychiatric hospitalizations, most recently in [facility] 2013. She has been hospitalized at [facility], [facility] 1991 & 2011, and [facility] on the [place], [place]. Per Dr. Almaguer's discharge summary 03/11/2012-03/15/2012 , patient was treated at [facility] for depression related to issues with her daughters and college. She was given a diagnosis of Mood Disorder NOS and provisional diagnosis of early onset dementia. She was transferred to [facility] for further stabilization, per 's request at the time. ~Patient also has a history of three prior suicide attempts versus gestures, all of them were overdoses. ~Patient has been seeing her psychiatrist, Dr. David off and on since 1993. Last follow up was x6 months ago per ER report. In general, she has not be compliant with her medications Cymbalta and Saphris. Patient reports that her dose of Cymbalta was 60 mg daily and Saphris was 30 mg HS (which is abnormally high dose for bipolar treatment). Patient has been taking cymbalta for many years. pt denies smoking. pt was offered abilify for mood stabilization, risk/benefits and alternatives explained to the pt. pt tolerates meds well, no side effects observed or reported, AIMS 0, no EPS. Impression: most likely pt has bipolar spectrum disorder. Medication Change: Yes (abilify) Medical Record Reviewed: Yes Consults ordered or reviewed: medical consult appreciated GI consult appreciated Mental Status Examination - Cognitive Function Orientation: Person, Place, Situation Attention: WNL Concentration: WNL Association: WNL Fund of Knowledge: WNL - Mood Mood: Depressed ("I feel better.."), Anxious - Affect Affect: Constricted - Formal Thought Process Formal Thought Process: No Impairment - Suicidal Ideation Suicidal Ideation: No - Homicidal Ideation Homicidal Ideation: No Goal/Treatment Plan - Goal/Treatment Plan Need for Continued Stay: Remain at risks for inpatient hospitalization, Severe depression anxiety, Discharge may exacerbated symptoms, Severe functional impairment Progress Toward Problem(s) and Goals/Treatment Plan: Milieu/structure/supportive therapy Medical consult appreciated, see medical team note for more detailed info GI consult appreciated, discussed with Dr.Vinod BO consultation for discharge plan and social issues family meeting scheduled for tomorrow Cymbalta 60 mg po daily for depression and anxiety Ativan will be decreased Ambien 5 mg HS prn: insomnia abilify 2.5mg po hs for mood stabilization Follow up on labs Will monitor closely BETZY evaluation for d/c planning Pt was educated about risk/benefits and alternatives of medications, coping strategies (safety plan, suicide prevention), relapse prevention, importance of follow up with psychiatrist and therapist, stay away from drugs/alcohol/smoking * Estimated Date of D/C: 04/13/17 - Smoking Cessation Smoking Cessation Initiated: No Reason for not providing: denies smoking
[2017-04-10 07:05] VITALS: RESP 20
--- NOTE | 2017-04-10 09:32 | PN ---
SUBJECTIVE: I saw Ora resting comfortably in her bed. She slept well. She is feeling well. She is telling me she is leaving tomorrow. She is on Abilify, Ambien, Ativan, Cymbalta, Maalox, and milk of magnesia. She is smiling. She is happy. She tells me she feels much better. PHYSICAL EXAMINATION VITAL SIGNS: She has 97.8 temp, 94 pulse, 117/86 blood pressure, 20 respiratory rate. HEENT: Head is atraumatic and normocephalic. HEART: Regular rate. LUNGS: Clear to auscultation. ABDOMEN: Soft. EXTREMITIES: No edema. LABORATORY DATA: Last labs on , CBC was very good. SMA-20 was very good. ALT was 62. She is doing much better. She is here for depression. Elevated LFTs improved. UTI which had no growth. She overdosed. Now, she is going to be discharged tomorrow I hope by psychiatry. We will continue to follow. Livan Tapia DO
--- NOTE | 2017-04-10 12:22 | PCM.PYCHPN ---
Psychiatric Progress Note - Psychiatric Progress Note Patient seen today, length of contact: 30min Patient Chief Complaint: "I did not think about the consequences, but all I could say I didn't want to kill myself, I wanted to have a sleep" Problems Identified/Issues Discussed: Suicide/ homicide prevention, past psychiatric h/o, current psychiatric symptoms , medical problems, risk/benefits and alternatives of medications, medications compliance, coping strategies, substance abuse h/o, relapse prevention, importance of follow up with psychiatrist and therapist, discharge plan. Medical Problems: pt reported being healthy,but has elevated LFTs, was seen by GI team , discussed, input appreciated Diagnostic Results: 04/09/17 07:00 04/09/17 07:00 Lab Results 04/09/17 07:00: Sodium 142, Potassium 4.8, Chloride 106, Carbon Dioxide 26, Anion Gap 15, BUN 15, Creatinine 0.8, Est GFR ( Amer) > 60, Est GFR (Non- Af Amer) > 60, Random Glucose 100, Calcium 9.7, Total Bilirubin 0.4, AST 27, ALT 62 H, Alkaline Phosphatase 73, Total Protein 6.1, Albumin 4.1, Globulin 2.1 , Albumin/Globulin Ratio 2.0 H 04/09/17 07:00: WBC 6.5, RBC 4.99, Hgb 14.5, Hct 43.8, MCV 87.8, MCH 29.1, MCHC 33.1, RDW 13.3, Plt Count 280, MPV 10.1 04/07/17 08:00: RPR Nonreactive 04/07/17 08:00: TSH 3rd Generation 1.43 04/07/17 08:00: Sodium 140, Potassium 4.2, Chloride 106, Carbon Dioxide 23, Anion Gap 15, BUN 15, Creatinine 0.8, Est GFR ( Amer) > 60, Est GFR (Non- Af Amer) > 60, Random Glucose 91, Fasting Glucose 91, Calcium 9.6, Total Bilirubin 0.6, AST 42 H, ALT 60 H, Alkaline Phosphatase 89, Total Protein 7.0, Albumin 4.0, Globulin 2.9, Albumin/Globulin Ratio 1.4, Triglycerides 143, Cholesterol 193, LDL Cholesterol Direct 117, HDL Cholesterol 47 04/07/17 08:00: WBC 8.0, RBC 5.21, Hgb 15.5, Hct 45.6, MCV 87.5, MCH 29.8, MCHC 34.0, RDW 13.4, Plt Count 246, MPV 9.9, Gran % 64.1, Lymph % (Auto) 26.1, [place] % (Auto) 8.7 H, Eos % (Auto) 0.9 L, Baso % (Auto) 0.2, Gran # 5.13, Lymph # 2.1 , [place] # 0.7 H, Eos # 0.1, Baso # 0.02 04/06/17 19:20: Urine Color Yellow, Urine Appearance Clear, Urine pH 6.0, Ur Specific [place] 1.010, Urine Protein Negative, Urine Glucose (UA) Negative, Urine Ketones Negative, Urine Blood Negative, Urine Nitrate Negative, Urine Bilirubin Negative, Urine Urobilinogen 0.2, Ur Leukocyte Esterase Trace H, Urine RBC 0 - 2, Urine WBC 5 - 10, Ur Epithelial Cells 3 - 4, Amorphous Sediment Few, Urine Bacteria Many 04/06/17 19:20: Urine Opiates Screen Negative, Urine Methadone Screen Negative, Ur Barbiturates Screen Negative, Ur Phencyclidine Scrn Negative, Ur Amphetamines Screen Negative, U Benzodiazepines Scrn Positive, U Oth Cocaine Metabols Negative, U Cannabinoids Screen Negative 04/06/17 17:00: Salicylates < 1 L, Acetaminophen < 10.0 L 04/06/17 15:30: Alcohol, Quantitative < 10 04/06/17 15:30: Sodium 140, Potassium 4.3, Chloride 102, Carbon Dioxide 28, Anion Gap 14, BUN 14, Creatinine 0.9, Est GFR ( Amer) > 60, Est GFR (Non- Af Amer) > 60, Random Glucose 94, Calcium 9.9, Magnesium 2.2, Total Bilirubin 0.7, AST 40 H, ALT 65 H, Alkaline Phosphatase 77, Total Protein 7.1, Albumin 4.3 , Globulin 2.8, Albumin/Globulin Ratio 1.5 04/06/17 15:30: WBC 8.6, RBC 5.02, Hgb 14.9, Hct 44.1, MCV 87.8, MCH 29.7, MCHC 33.8, RDW 13.4, Plt Count 296, MPV 10.1, Gran % 67.1, Lymph % (Auto) 24.0, [place] % (Auto) 8.0 H, Eos % (Auto) 0.7 L, Baso % (Auto) 0.2, Gran # 5.77, Lymph # 2.1 , [place] # 0.7 H, Eos # 0.1, Baso # 0.02 Vital Signs Temp Pulse Resp BP Pulse Ox 04/09/17 16:00 92 H 135/91 H 04/09/17 08:01 98.5 F 88 18 139/88 04/08/17 16:53 100 H 114/83 04/08/17 07:29 97.4 F L 92 H 21 123/83 04/07/17 16:41 89 101/61 04/07/17 06:49 98 F 87 20 121/84 04/06/17 22:10 18 04/06/17 19:19 86 16 103/54 L 97 04/06/17 17:18 80 16 127/78 96 04/06/17 14:56 98.3 F 92 H 18 137/75 96 Temp Pulse Resp BP Pulse Ox 97.8 F 94 H 20 117/86 97 04/10/17 07:05 04/10/17 07:05 04/10/17 07:05 04/10/17 07:05 04/06/17 19:19 DSM 5 Symptoms Update: Patient is a 56 yo female with psychiatric history of Bipolar Disorder and Anxiety Disorder, multiple admissions-most recently in 2013 at [place], at least 3 prior suicide attempts, pt was admitted for evaluation of s/p overdose on xanax, r/o suicidal attempt, depressive symptoms. please see initial evaluation for more detailed information. pt was seen today at the treatment team meeting room, family came over, pt's and daughter, pt gave consent for family meeting and disclose information. As per pt's daughter pt was more depressed, was self isolating, as per and daughter pt was not expressing any thoughts of harming self or others. Pt's said he left his three bottles of xanax 0.5mg approximately 50pills, pt overdosed on all of them. as per pt "I did not want to , I just wanted to sleep", pt said that she realized "it was stupid and irrational, I don't have an explanation for my action, but I am so sorry what I' ve done", pt adamantly denied any thoughts of harming self prior of overdose, denied she was planning to do so, adamantly denied thoughts of harming self at present moment. as per pt's "my looks better than ever now, usually when she is depressed, she sees me like her enemy, but now not...". family expressed no concerns about pt's safety, all questions answered, concerns addressed. pt willing to be followed up with psychiatrist and therapist. in regards of initial note that pt was taking meds sporadically, pt said she was taking cymbalta on regular basis, but saphris was prescribed to her two days prior to this hospitalization. pt tolerates abilify well, willing to increase dose to 5mg hs. pt tolerates meds well, no side effects observed or reported, AIMS 0, no EPS. Impression: most likely pt has bipolar spectrum disorder. Medication Change: Yes (abilify increased) Medical Record Reviewed: Yes Consults ordered or reviewed: medical consult appreciated GI consult appreciated Mental Status Examination - Cognitive Function Orientation: Person, Place, Situation Attention: WNL Concentration: WNL Association: WNL Fund of Knowledge: WNL - Mood Mood: Depressed ("I feel better.."), Anxious (denied) - Affect Affect: Constricted (more reactive, mood congruent) - Formal Thought Process Formal Thought Process: No Impairment - Suicidal Ideation Suicidal Ideation: No - Homicidal Ideation Homicidal Ideation: No Goal/Treatment Plan - Goal/Treatment Plan Need for Continued Stay: Remain at risks for inpatient hospitalization, Severe depression anxiety, Discharge may exacerbated symptoms, Severe functional impairment Progress Toward Problem(s) and Goals/Treatment Plan: Milieu/structure/supportive therapy Medical consult appreciated, see medical team note for more detailed info GI consult appreciated, discussed with Dr.Vinod BO consultation for discharge plan and social issues family meeting scheduled for tomorrow Cymbalta 60 mg po daily for depression and anxiety Ativan will be decreased Ambien 5 mg HS prn: insomnia abilify 5mg po hs for mood stabilization Follow up on labs Will monitor closely SW evaluation for d/c planning Pt was educated about risk/benefits and alternatives of medications, coping strategies (safety plan, suicide prevention), relapse prevention, importance of follow up with psychiatrist and therapist, stay away from drugs/alcohol/smoking * Estimated Date of D/C: 04/11/17
--- NOTE | 2017-04-10 12:27 | CP.PCM.PN ---
<Katty Solano - Last Filed: 04/10/17 12:27> Subjective - Date & Time of Evaluation Date of Evaluation: 04/10/17 Time of Evaluation: 08:00 - Subjective Subjective: PGY 4 GI Follow-up Pt seen and examined Denies any abd pain good appetite reg BM no other complaints ROS: 10 point ROS conducted, neg other than above Objective - Vital Signs/Intake and Output Vital Signs (last 24 hours): Temp Pulse Resp BP Pulse Ox 97.8 F 94 H 20 117/86 97 04/10/17 07:05 04/10/17 07:05 04/10/17 07:05 04/10/17 07:05 04/06/17 19:19 - Medications Medications: Current Medications Al Hydrox/Mg Hydrox/Simethicone (Maalox Plus 30 Ml) 30 ml PO DAILY PRN PRN Reason: Upset Stomach Aripiprazole (Abilify) 2.5 mg PO HS [facility] Last Admin: 04/09/17 21:10 Dose: 2.5 mg Duloxetine HCl (Cymbalta) 60 mg PO DAILY [facility] Last Admin: 04/10/17 08:19 Dose: 60 mg Lorazepam (Ativan) 0.5 mg PO BID PRN; Protocol PRN Reason: Anxiety Magnesium Hydroxide (Milk Of Magnesia) 30 ml PO DAILY PRN PRN Reason: Constipation Zolpidem Tartrate (Ambien) 5 mg PO HS PRN; Protocol PRN Reason: Insomnia Last Admin: 04/09/17 21:12 Dose: 5 mg - Labs Labs: 04/09/17 07:00 04/09/17 07:00 - Constitutional Appears: Well, No Acute Distress - Head Exam Head Exam: ATRAUMATIC, NORMOCEPHALIC - Eye Exam Eye Exam: Normal appearance - ENT Exam ENT Exam: Mucous Membranes Moist - Respiratory Exam Respiratory Exam: Clear to Ausculation Bilateral, NORMAL BREATHING PATTERN. absent: Prolonged Expiratory Phase, Rales, Rhonchi - Cardiovascular Exam Cardiovascular Exam: REGULAR RHYTHM, +S1, +S2 - GI/Abdominal Exam GI & Abdominal Exam: Soft, Normal Bowel Sounds. absent: Guarding, Rigid, Tenderness, Mass, Organomegaly - Extremities Exam Extremities Exam: absent: Joint Swelling, Pedal Edema - Neurological Exam Neurological Exam: Alert, Awake, Normal Gait - Psychiatric Exam Psychiatric exam: Normal Affect, Normal Mood - Skin Skin Exam: Dry, Intact, Normal Color, Warm Assessment and Plan - Assessment and Plan (Free Text) Assessment: Ora Ram is a 56F w/ hx of depression and HL who presented to the hospital for psychiatric needs, depression. Her LFTs were incidentally found to be elevated but improving Elevated LFTs, etiology likely 2/2 fatty liver disease; r/o viral hepatitis and autoimmune Hx of colon polyps Plan -abd u/s revealed fatty infiltrate, s/p cholecysectomy -hepatitis panel and autoimmune w/u including SAMM, AMA and anti-smooth muscle, pending -continue regular diet -continue current meds as per primary medical team and psych -recommend f/u with Dr. 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 -recommend weight loss, drink 3 cups of coffee daily -will sign off D/W Dr Manuel <Gabriel Manuel - Last Filed: 04/10/17 13:12> Objective - Vital Signs/Intake and Output Vital Signs (last 24 hours): Temp Pulse Resp BP Pulse Ox 97.8 F 94 H 20 117/86 97 04/10/17 07:05 04/10/17 07:05 04/10/17 07:05 04/10/17 07:05 04/06/17 19:19 - Medications Medications: Current Medications Al Hydrox/Mg Hydrox/Simethicone (Maalox Plus 30 Ml) 30 ml PO DAILY PRN PRN Reason: Upset Stomach Aripiprazole (Abilify) 2.5 mg PO HS [facility] Last Admin: 04/09/17 21:10 Dose: 2.5 mg Duloxetine HCl (Cymbalta) 60 mg PO DAILY [facility] Last Admin: 04/10/17 08:19 Dose: 60 mg Lorazepam (Ativan) 0.5 mg PO BID PRN; Protocol PRN Reason: Anxiety Magnesium Hydroxide (Milk Of Magnesia) 30 ml PO DAILY PRN PRN Reason: Constipation Zolpidem Tartrate (Ambien) 5 mg PO HS PRN; Protocol PRN Reason: Insomnia Last Admin: 04/09/17 21:12 Dose: 5 mg - Labs Labs: 04/09/17 07:00 04/09/17 07:00 Attending/Attestation - Attestation I have personally seen and examined this patient.: Yes I have fully participated in the care of the patient.: Yes I have reviewed all pertinent clinical information, including history, physical exam and plan: Yes Notes (Text): 04/10/17 13:11 56 year old female with h/o depression, HL admitted to psych unit. 1. Elevated LFTs 2. Fatty liver Plan: -LFTs improving -advised drinking black coffee TID -advised exercise and wt loss -advise outpatient follow up and routine monitoring of LFTs
[2017-04-11 07:30] VITALS: BP 143/88; PULSE 86; TEMP 98.1
--- NOTE | 2017-04-11 11:20 | PN ---
DATE: SUBJECTIVE: I saw Ora in her room in psych floor. She is very happy today. She tells that she is being discharged. She is on Abilify, Ambien, Ativan, Cymbalta, Maalox, and milk of magnesia. She is in good spirits. PHYSICAL EXAMINATION: VITAL SIGNS: She has 98.1 temperature, 86 pulse, 143/88 blood pressure, 20 respiratory rate. HEENT: Head is atraumatic and normocephalic. HEART: Regular rate. LUNGS: Clear to auscultation. ABDOMEN: Soft. EXTREMITIES: No edema. LABORATORY DATA: Last labs on , CBC was good. SMA-20 was good with 62 ALT. PLAN: She is otherwise fairly comfortable. She had many bacteria on a urine, but there is no growth on the culture. She will be followed up on the outpatient with primary care doctor. She will be discharged as per Psychiatry. Livan Tapia DO
[2017-04-11 11:36] LABS: HB E AG Nonreactive (Nonreactive)
--- NOTE | 2017-04-12 09:04 | PCM.PYCHDC ---
Mental Status Examination - Mental Status Examination Orientation: Person, Place, Situation, Time Memory: Intact Mood: Neutral Affect: Broad (and mood congruent) Speech: Appropriate Attention: WNL Concentration: WNL Association: WNL Fund of Knowledge: WNL Formal Thought Process: No Impairment Description of patient's judgement and insight: Pt has improved insight into mental and medical illness, pt was compliant with medications and unit rules and regulations, pt was going to groups, was calm, cooperative, socially appropriate, no behavioral incidents, no agitation, no aggression. Psychotic Thoughts and Behaviors: Pt denied v/a/t hallucinations, denied paranoid ideations, pt does not appear to be psychotic, and thought process is goal directed. Suicidal Ideation: No Current Homicidal Ideation?: No Plan: pt adamantly denied thoughts of harming self or others denied intent or plan. Discharge Summary - Discharge Note Reason for Hospitalization: pt was admitted to the hospital s/p overdose on xanax. Psychiatric History (includes Medical, Family, Personal Hx): pt has long h/o mental illness, multiple psychiatric admissions Laboratory Data: Abnormal Lab Results 04/10/17 07:00 SAMM Screen Negative SAMM Titer TEST NOT PERFORMED SAMM Titer 2 TEST NOT PERFORMED SAMM Pattern TEST NOT PERFORMED SAMM Pattern 2 TEST NOT PERFORMED Anti-Mitochondrial Ab Negative Smooth Muscle Ab Titer TEST NOT PERFORMED Anti-Smooth Muscle Ab Negative Hepatitis Be Antigen Nonreactive 04/09/17 07:00 04/09/17 07:00 Lab Results 04/10/17 07:00: SAMM Screen Negative, SAMM Titer TEST NOT PERFORMED, SAMM Titer 2 TEST NOT PERFORMED, SAMM Pattern TEST NOT PERFORMED, SAMM Pattern 2 TEST NOT PERFORMED, Anti-Mitochondrial Ab Negative, Smooth Muscle Ab Titer TEST NOT PERFORMED, Anti-Smooth Muscle Ab Negative, Hepatitis Be Antigen Nonreactive 04/10/17 07:00: Hep Bs Antibody Negative 04/10/17 07:00: Hep B Core IgM Ab Negative 04/10/17 07:00: Hepatitis A IgM Ab Negative, Hep Bs Antigen Negative, Hep B Core IgM Ab Negative, Hepatitis C Antibody Negative 04/09/17 07:00: Sodium 142, Potassium 4.8, Chloride 106, Carbon Dioxide 26, Anion Gap 15, BUN 15, Creatinine 0.8, Est GFR ( Amer) > 60, Est GFR (Non- Af Amer) > 60, Random Glucose 100, Calcium 9.7, Total Bilirubin 0.4, AST 27, ALT 62 H, Alkaline Phosphatase 73, Total Protein 6.1, Albumin 4.1, Globulin 2.1 , Albumin/Globulin Ratio 2.0 H 04/09/17 07:00: WBC 6.5, RBC 4.99, Hgb 14.5, Hct 43.8, MCV 87.8, MCH 29.1, MCHC 33.1, RDW 13.3, Plt Count 280, MPV 10.1 04/07/17 08:00: RPR Nonreactive 04/07/17 08:00: TSH 3rd Generation 1.43 04/07/17 08:00: Sodium 140, Potassium 4.2, Chloride 106, Carbon Dioxide 23, Anion Gap 15, BUN 15, Creatinine 0.8, Est GFR ( Amer) > 60, Est GFR (Non- Af Amer) > 60, Random Glucose 91, Fasting Glucose 91, Calcium 9.6, Total Bilirubin 0.6, AST 42 H, ALT 60 H, Alkaline Phosphatase 89, Total Protein 7.0, Albumin 4.0, Globulin 2.9, Albumin/Globulin Ratio 1.4, Triglycerides 143, Cholesterol 193, LDL Cholesterol Direct 117, HDL Cholesterol 47 04/07/17 08:00: WBC 8.0, RBC 5.21, Hgb 15.5, Hct 45.6, MCV 87.5, MCH 29.8, MCHC 34.0, RDW 13.4, Plt Count 246, MPV 9.9, Gran % 64.1, Lymph % (Auto) 26.1, Sibley % (Auto) 8.7 H, Eos % (Auto) 0.9 L, Baso % (Auto) 0.2, Gran # 5.13, Lymph # 2.1 , Sibley # 0.7 H, Eos # 0.1, Baso # 0.02 04/06/17 19:20: Urine Color Yellow, Urine Appearance Clear, Urine pH 6.0, Ur Specific Hurst 1.010, Urine Protein Negative, Urine Glucose (UA) Negative, Urine Ketones Negative, Urine Blood Negative, Urine Nitrate Negative, Urine Bilirubin Negative, Urine Urobilinogen 0.2, Ur Leukocyte Esterase Trace H, Urine RBC 0 - 2, Urine WBC 5 - 10, Ur Epithelial Cells 3 - 4, Amorphous Sediment Few, Urine Bacteria Many 04/06/17 19:20: Urine Opiates Screen Negative, Urine Methadone Screen Negative, Ur Barbiturates Screen Negative, Ur Phencyclidine Scrn Negative, Ur Amphetamines Screen Negative, U Benzodiazepines Scrn Positive, U Oth Cocaine Metabols Negative, U Cannabinoids Screen Negative 04/06/17 17:00: Salicylates < 1 L, Acetaminophen < 10.0 L 04/06/17 15:30: Alcohol, Quantitative < 10 04/06/17 15:30: Sodium 140, Potassium 4.3, Chloride 102, Carbon Dioxide 28, Anion Gap 14, BUN 14, Creatinine 0.9, Est GFR ( Amer) > 60, Est GFR (Non- Af Amer) > 60, Random Glucose 94, Calcium 9.9, Magnesium 2.2, Total Bilirubin 0.7, AST 40 H, ALT 65 H, Alkaline Phosphatase 77, Total Protein 7.1, Albumin 4.3 , Globulin 2.8, Albumin/Globulin Ratio 1.5 04/06/17 15:30: WBC 8.6, RBC 5.02, Hgb 14.9, Hct 44.1, MCV 87.8, MCH 29.7, MCHC 33.8, RDW 13.4, Plt Count 296, MPV 10.1, Gran % 67.1, Lymph % (Auto) 24.0, Sibley % (Auto) 8.0 H, Eos % (Auto) 0.7 L, Baso % (Auto) 0.2, Gran # 5.77, Lymph # 2.1 , Sibley # 0.7 H, Eos # 0.1, Baso # 0.02 Vital Signs Temp Pulse Resp BP Pulse Ox 04/11/17 07:29 98.1 F 86 20 143/88 04/10/17 16:00 94 H 147/97 H 04/10/17 07:05 97.8 F 94 H 20 117/86 04/09/17 16:00 92 H 135/91 H 04/09/17 08:01 98.5 F 88 18 139/88 04/08/17 16:53 100 H 114/83 04/08/17 07:29 97.4 F L 92 H 21 123/83 04/07/17 16:41 89 101/61 04/07/17 06:49 98 F 87 20 121/84 04/06/17 22:10 18 04/06/17 19:19 86 16 103/54 L 97 04/06/17 17:18 80 16 127/78 96 04/06/17 14:56 98.3 F 92 H 18 137/75 96 Consultations:: List each consultation separately and include: 1. Reason for request. 2. Findings. 3. Follow-up Consultations: medical consult appreciated GI consult appreciated see notes for more detailed information Summary of Hospital Course include:: 1. Description of specific treatment plan utilized for patients during their course of treatmen. 2. Summarize the time- course for resolution of acute symptoms and/or regressed behaviors. 3. Describe issues identified and worked on during hospitalization. 4. Describe medication utilized. 5. Describe medical problems identified and treated. 6. Reassessment of suicide risk Summary of Hospital Course: Patient is a 56 yo female with psychiatric history of Bipolar Disorder and Anxiety Disorder, multiple admissions-most recently in 2013 at [facility], at least 3 prior suicide attempts, BIBA for possible suicidal attempt. ER records indicate that patient admitted to taking 25 to 30 tabs of 0.5 mg Xanax at 12:30 pm the day prior to this admission. as per 's assessment:pt informed that xanax overdose was impulsive and intentional but was more of a suicidal gesture and not a true suicide attempt. She isn't prescribed xanax, she took her 's medication. Patient reports that she has been feeling increasingly depressed and unhappy. Endorses symptoms of anhedonia, low energy, motivation and frustration tolerance. Reports that she is very stressed because her is battling small bowel carcinoma. He was given 18-24 months to live, this was 3 years ago. They have been traveling back and forth from their two residences in [facility] for treatment at [facility]. Patient reports that it has been difficult to see her lose weight and become weak. He used to work as a special police officer and has always been very strong. Patient is also worried about her 25 yo adult son who lives with her and her . He's "been moping around at home" and doesn't have a job. She wants him to do better. These worries keep her up at night thus she also hasn't been sleeping well. PSYCHIATRIC HISTORY ~Symptoms of depression started 25 years ago after the of her son. Patient reports multiple prior psychiatric hospitalizations, most recently in [place] 2013. She has been hospitalized at [facility], [facility] 1991 & 2011, and [facility] on the [place], [place]. Per Dr. Almaguer's discharge summary 03/11/2012-03/15/2012 , patient was treated at [facility] for depression related to issues with her daughters and college. She was given a diagnosis of Mood Disorder NOS and provisional diagnosis of early onset dementia. She was transferred to [facility] for further stabilization, per 's request at the time. ~Patient also has a history of three prior suicide attempts versus gestures, all of them were overdoses. ~Patient has been seeing her psychiatrist, Dr. David off and on since 1993. Last follow up was x6 months ago per ER report. In general, she has not be compliant with her medications Cymbalta and Saphris. Patient reports that her dose of Cymbalta was 60 mg daily and Saphris was 30 mg HS (which is abnormally high dose for bipolar treatment). Patient has been taking cymbalta for many years. SOCIAL HISTORY Born in [place] and grew up in [place]. Patient is a college graduate and majored in criminal justice. Patient at the age of 30. Her is 20 years her senior. 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 Patient has three grown children 23-year-old fraternal twin daughters and a 25-year-old son. Patient's 23-year-old daughter and 25-year -old son reside with her and her . 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 He was given 18 to 24 months to live at the time. Patient denies drug/alcohol/tobacco use. over the course of this hospitalization pt was stabilized on the following medication: Cymbalta was increased from 30mg po daily to 60mg po daily for depression and anxiety abilify was added as a mood stabilizer and was slowly increased from 2,5mg po hs to 5mg po hs pt was given ativan prn, but pt was not anxious and it was d/c for insomnia pt was on ambien 5mg po hs. pt tolerated medication swell, no side effects observed or reported, AIMS 0, no EPS. Family meeting took place with pt's , her daughter, BETZY, this instructional writer and pt herself. Pt was willing to have family to be involved and gave consent to do so. all questions and concerns addressed, pt's family and pt were in agreement with treatment and discharge plans, family was willing to accept pt back. See SW note for more detailed information. Over the course of this hospitalization pt was attending groups, pt also had medication management, had therapeutic milieu. Overall pt improved significantly, pt's affect became brighter, pt was less depressed, has realistic future oriented plans, pt also does not appear to be psychotic, or anxious, pt was socially appropriate, no behavioral issues, pts insight improved as well and soon pt deemed to be ready for discharge. At the time of the discharge pt denied been depressed, denied thoughts of harming self or others, denied psychotic symptoms, and pt does not appeared to be psychotic, denied been anxious, pt is not in imminent danger to self or others, will be following up at [facility], information about follow up appointment, time and address provided to the pt, it is patient responsibility to follow up with outpatient clinic, PMD as well as specialists ( see SW note for more detailed information). In case pt will need to obtain results of studies pending at discharge pt was provided with contact information of Psychiatric Inpatient unit [phone] as well as Medical Record Department [phone]. this instructional writer called in for pt's meds to [facility] pharmacy because as per family they insurance plan takes so long to approve medications and pt prefer to have actual pills before leaving the hospital. Pt was provided 2weeks supply of her psychotropic meds this instructional writer also gave prescription for two weeks and one refill of her meds to give to the pt's pharmacy. pt was provided with prescriptions for all of medications (please see medication reconciliation form) Pt was educated about safety plan in case of worsening of symptoms or in case of suicidal or homicidal ideation call 911 or go to the nearest ER, also was educated to take meds as prescribed and stay away from drugs, pt verbalized understanding. - Diagnosis (1) Bipolar II disorder, mild, depressed, with anxious distress Status: Acute - Final Diagnosis (DSM 5) Condition upon Discharge: GOOD Disposition: HOME/ ROUTINE Follow-up Treatment Plan: At the time of the discharge pt denied been depressed, denied thoughts of harming self or others, denied psychotic symptoms, and pt does not appeared to be psychotic, denied been anxious, pt is not in imminent danger to self or others, will be following up at [facility], information about follow up appointment, time and address provided to the pt, it is patient responsibility to follow up with outpatient clinic, PMD as well as specialists ( see SW note for more detailed information). In case pt will need to obtain results of studies pending at discharge pt was provided with contact information of Psychiatric Inpatient unit [phone] as well as Medical Record Department [phone]. this instructional writer called in for pt's meds to [facility] pharmacy because as per family they insurance plan takes so long to approve medications and pt prefer to have actual pills before leaving the hospital. Pt was provided 2weeks supply of her psychotropic meds this instructional writer also gave prescription for two weeks and one refill of her meds to give to the pt's pharmacy. pt was provided with prescriptions for all of medications (please see medication reconciliation form) Pt was educated about safety plan in case of worsening of symptoms or in case of suicidal or homicidal ideation call 911 or go to the nearest ER, also was educated to take meds as prescribed and stay away from drugs, pt verbalized understanding. Prescriptions/Medication Reconciliation: ARIPiprazole [Abilify] 5 mg PO HS #14 tab DULoxetine [Cymbalta] 60 mg PO DAILY #14 ecc Zolpidem [Ambien] 5 mg PO HS PRN #14 tab PRN Reason: Insomnia - Smoking Cessation Smoking Cessation Medication prescribed: No Reason for not providing: pt does not smoke - Antipsychotic Medications Pt discharged on 2 or more routine antipsychotic medications: No
== END 2017-04-11 13:11 | disposition home or self-care (01) | DRG 885 ==
LOC: ED 14:46 → ERH 19:51 → PSYC 20:57
PROVIDERS: ADMIT Psychiatry & Neurology Psychiatry; ATTEND Psychiatry & Neurology Psychiatry
DX: F31.81 Bipolar II disorder (principal); K76.0 Fatty (change of) liver, not elsewhere classified; Z91.14 Patient's other noncompliance with medication regimen; F13.239 Sedative, hypnotic or anxiolytic dependence with withdrawal, unspecified; N39.0 Urinary tract infection, site not specified; E78.00 Pure hypercholesterolemia, unspecified; F41.9 Anxiety disorder, unspecified; E78.5 Hyperlipidemia, unspecified; T42.4X2A Poisoning by benzodiazepines, intentional self-harm, initial encounter; Z86.010 Personal history of colon polyps; Z90.49 Acquired absence of other specified parts of digestive tract; Z91.5 Personal history of self-harm; R40.2412 Glasgow coma scale score 13-15, at arrival to emergency department; R74.0 Nonspecific elevation of levels of transaminase and lactic acid dehydrogenase [LDH]

== ENCOUNTER 2017-05-12 12:22 | Emergency (ER) | payer BC ==
[2017-05-12 12:25] VITALS: BMI 32.3
[2017-05-12] MEDS ORDERED: Sodium Chloride 0.9% 1,000 ML IV STA (12:30)
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
[2017-05-12 12:45] LABS: BASO # 0.02 K/mm3 (0.0-2.0); BASO % 0.2 % (0.0-3.0); EOS # 0.1 (0.0-0.7); EOS % 0.5 % (1.5-5.0); GRAN # 6.69 (1.4-6.5); GRAN % 60.1 % (50.0-68.0); HEMOGLOBIN 14.7 g/dL (12.0-16.0); LYMPH # 3.5 (1.2-3.4); LYMPH % 30.9 % (22.0-35.0); MEAN CELL VOLUME 85.1 fl (80.0-105.0); MEAN CORPUSCULAR HEMOGLOBIN 29.6 pg (25.0-35.0); MEAN CORPUSCULAR HGB CONC 34.8 g/dl (31.0-37.0); MEAN PLATELET VOLUME 10.6 fl (7.0-11.0); MONO # 0.9 (0.1-0.6); MONO % 8.3 % (1.0-6.0); RBC 4.96 10^6/uL (3.5-6.1); RED CELL DISTRIBUTION WIDTH 13.4 % (11.5-14.5); WHITE BLOOD COUNT 11.2 10^3/ul (4.5-11.0)
[2017-05-12 12:56] LABS: ALB/GLOB RATIO 1.4 (1.1-1.8); ALBUMIN 4.2 g/dL (3.0-4.8); GFR AFRICAN-AMERICAN > 60; GFR NON-AFRICAN AMERICAN > 60
[2017-05-12 12:59] LABS: ALT/SGPT 70 U/L (7-56); AST/SGOT 48 U/L (14-36); BLOOD UREA NITROGEN 11 mg/dL (7-21)
[2017-05-12 13:07] LABS: TROPONIN I < 0.01 ng/mL
[2017-05-12 13:23] LABS: ACETAMINOPHEN < 10.0 ug/ml (10.0-20.0); SALICYLATE < 1 mg/dL (2.0-20.0)
[2017-05-12 13:34] LABS: URINE BILIRUBIN NEGATIVE (NEGATIVE); URINE BLOOD TRACE-INTACT (NEGATIVE); URINE GLUCOSE (UA) NEGATIVE (NEGATIVE); URINE LEUKOCYTE ESTERASE NEGATIVE Leu/uL (NEGATIVE); URINE NITRATE NEGATIVE (NEGATIVE); URINE PROTEIN TRACE mg/dL (<30 mg/dL); URINE UROBILINOGEN 0.2 E.U./dL (<1 E.U./dL)
[2017-05-12 13:38] LABS: URINE APPEARANCE CLEAR (CLEAR); URINE COLOR YELLOW (YELLOW)
[2017-05-12] MEDS ORDERED: Iohexol 350 MG/100 ML VIAL ONE (13:38)
[2017-05-12 13:46] LABS: URINE RBC 0 - 2 /hpf (0-2)
[2017-05-12 13:47] LABS: URINE BACTERIA FEW (NEG)
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
[2017-05-12 13:51] LABS: BARBITURATES, UR NEGATIVE (NEGATIVE); BENZODIAZEPINES, UR NEGATIVE (NEGATIVE); OPIATES, UR NEGATIVE (NEGATIVE); PHENCYCLIDINE, UR NEGATIVE (NEGATIVE)
[2017-05-12 13:52] LABS: INR 1.07 (0.93-1.08); PARTIAL THROMBOPLASTIN TIME 28.9 Seconds (25.1-36.5); PROTHROMBIN TIME 12.3 SECONDS (9.4-12.5)
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
[2017-05-12] MEDS ORDERED: Lidocaine 1% Inj (20ml) IJ STA (15:50)
[2017-05-12] MEDS ORDERED: Lidocaine 1% Inj (20ml) ONE (16:10)
[2017-05-12 22:18] VITALS: O2SAT 97
[2017-05-13 00:57] VITALS: RESP 18
[2017-05-13 02:57] VITALS: BP 129/73; PULSE 90; TEMP 98
--- NOTE | 2017-05-13 10:12 | CARD ---
APPROVED REPORT EKG Measurement Heart [id number] <Conclusion> Sinus rhythm with premature atrial complexes Cannot rule out Inferior infarct, age undetermined PRWP NSSTW changes No change
== END 2017-05-13 03:45 | disposition short-term general hospital (02) ==
LOC: ED 12:22
DX: S21.112A Laceration without foreign body of left front wall of thorax without penetration into thoracic cavity, initial encounter (principal); S31.119A Laceration without foreign body of abdominal wall, unspecified quadrant without penetration into peritoneal cavity, initial encounter; X78.9XXA Intentional self-harm by unspecified sharp object, initial encounter; F32.9 Major depressive disorder, single episode, unspecified
CPT/HCPCS: 12006; 70450; 71260; 73090; 74177; 80053; 81001; 84484; 84702; 85025; 85610; 85730; 86850; 86900; 87086; 90791; 93005; 96360; 99285; G0480; J2060; J7040; Q9967

== ENCOUNTER 2018-05-01 12:31 | Outpatient (CLI) | payer BC | END 2018-05-01 12:32 | disposition home or self-care (01) | LOC: RAD 12:31 ==